=== PATIENT | female | born 1945 | race Caucasian/White ===

== ENCOUNTER 2017-04-22 02:20 | Emergency (ER) | payer MEDICARE ==
[2017-04-22 02:27] VITALS: O2SAT 94
--- NOTE | 2017-04-22 02:54 | ERPHSYRPT ---
- History of Present Illness Time Seen by Provider: 04/22/17 02:38 Source: patient Patient Subjective Stated Complaint: REPORTS THAT SHE HAS HAD SOME RECTAL BLEEDING SINCE 1830 TONIGHT - HAS TROUBLE WITH HEMORRHOIDS AND INCONSISTENT USE OF STOOL SOFTENERS - REPORTS THAT SHE BECAME CONCERNED WHEN SHE FILLED THE TOILET WITH BLOOD Triage Nursing Assessment: AMBULATORY TO TREATMENT AREA - WADDLING GAIT - MOVES ALL EXTREMITIES WITH EQUAL STRENGTH. ALERT/ORIENTED - ANXIOUS AFFECT. SKIN FLUSHED/HOT/DRY - NO RASH/INJURY. RESPS EASY - LABORED PER EXERTION Physician History: The patient is a 71-year-old female with her daughter complaining of bright red blood per rectum when she tries to have a bowel movement. This has occurred 4 times over the last 9 hours. She has a history of constipation and has been prescribed laxatives and stool softeners but has not taken any for 4-5 months. I reviewed the results of the CT scan in 2014 and there was no mention of diverticular disease. She did however have a 5 mm kidney stone at that time. She states that she has significant hemorrhoids. She believes the hemorrhoids are bleeding when she bears down to have a bowel movement. She denies any specific pain. Past medical history is significant for uterine cancer treated with radiation therapy, hypertension, diabetes, and external hemorrhoids. She' s had a cholecystectomy, appendectomy, and CABG. Timing/Duration: today, hour(s) (9) Severity: mild Modifying Factors: Improves With: other Associated Symptoms: other (rectal bleeding.) Allergies/Adverse Reactions: venom-honey bee [bee venom (honey bee)] Allergy (Intermediate, Verified 00:58) Home Medications: Amlodipine Besylate 10 mg [Norvasc 10 MG] 10 mg PO DAILY 04/22/17 [History] Bisoprolol Fumarate 5 mg PO DAILY 04/22/17 [History] Insulin Lispro [Humalog] 1 unit SQ DAILY 04/22/17 [History] Potassium Chloride 20 Meq [Klor-Con 20 MEQ] 20 meq PO DAILY 04/22/17 [History] Zolpidem Tartrate [Ambien] 5 mg PO DAILY 04/22/17 [History] Hx Tetanus, Diphtheria Vaccination/Date Given: Yes Hx Influenza Vaccination/Date Given: Yes Hx Pneumococcal Vaccination/Date Given: Yes Immunizations Up to Date: No - Review of Systems Constitutional: No Fever, No Chills Eyes: No Symptoms Ears, Nose, & Throat: No Symptoms Respiratory: No Cough, No Dyspnea Cardiac: No Chest Pain, No Edema, No Syncope Abdominal/Gastrointestinal: Constipation (with hemorrhoids) Genitourinary Symptoms: No Dysuria Musculoskeletal: No Back Pain, No Neck Pain Skin: No Rash Neurological: No Dizziness, No Focal Weakness, No Sensory Changes Psychological: No Symptoms Endocrine: No Symptoms Hematologic/Lymphatic: No Symptoms Immunological/Allergic: No Symptoms All Other Systems: Reviewed and Negative (probably) - Past Medical History Pertinent Past Medical History: Yes Neurological History: Peripheral Neuropathy ENT History: No Pertinent History Cardiac History: Hypertension, Myocardial Infarction (HI) Respiratory History: No Pertinent History Endocrine Medical History: Diabetes Type II Musculoskeletal History: Arthritis GI Medical History: Other History: No Pertinent History, Other Psycho-Social History: Anxiety Female Reproductive Disorders: Uterine Cancer Other Medical History: Cataract removal with lens implant bilateral. kidney stone - Past Surgical History Past Surgical History: Yes Neuro Surgical History: No Pertinent History Cardiac: CABG, Cardiac Catheterization Respiratory: Chest Surgery Gastrointestinal: Appendectomy, Cholecystectomy, Hernia Repair Genitourinary: No Pertinent History Musculoskeletal: No Pertinent History, Orthopedic Surgery, Other Female Surgical History: No Pertinent History Other Surgical History: erica IOL implant,cataract removal,IMANI back,,states bone bx at [facility], T&A, 2 kyphoplasty,hernia repair - Social History Smoking Status: Never smoker How long have you smoked: 10years Exposure to second hand smoke: No Drug Use: none Patient Lives Alone: No - Female History Hx Last Menstrual Period: N/A Hx Now: No - Nursing Vital Signs Nursing Vital Signs: Initial Vital Signs Pulse Rate 53 Respiratory Rate 18 Blood Pressure [Right Arm] 153/78 Pain Intensity 2 - Physical Exam General Appearance: no apparent distress, alert Eye Exam: PERRL/EOMI, eyes nml inspection Ears, Nose, Throat Exam: normal ENT inspection, TMs normal, pharynx normal, moist mucous membranes Neck Exam: normal inspection, non-tender, supple, full range of motion Respiratory Exam: normal breath sounds, lungs clear, No respiratory distress Cardiovascular Exam: regular rate/rhythm, normal heart sounds, normal peripheral pulses Gastrointestinal/Abdomen Exam: soft, normal bowel sounds, other (obese), No tenderness, No mass Pelvic Exam: not done Rectal Exam: normal rectal tone, hemorrhoids, blood, No tenderness Back Exam: normal inspection, normal range of motion, No CVA tenderness, No vertebral tenderness Extremity Exam: normal inspection, normal range of motion, pelvis stable Neurologic Exam: alert, oriented x 3, cooperative, normal mood/affect, nml cerebellar function, nml station & gait, sensation nml, No motor deficits Skin Exam: normal color, warm, dry, No rash Lymphatic Exam: No adenopathy SpO2 Interpretation: normal SpO2: 94 Oxygen Delivery: Room Air - Radiology Exams Abdomen X-ray Interpretation: Interpreted by me, Other (increased colonic fecal load) Ordered Tests: Active Orders 24 hr Category Date Time Status OBSTR/ACUTE ABDOMEN SERIES Stat Exams 04/22/17 03:06 Taken CBC W DIFF Stat Lab 04/22/17 03:25 Completed CMP Stat Lab 04/22/17 03:25 Received Occult Blood,Stool Other Stat Lab 04/22/17 03:15 Completed Lab/Rad Data: Laboratory Result Diagrams 04/22/17 03:25 Laboratory Results 04/22/17 04/22/17 Range/Units 03:25 03:15 WBC 7.6 (4.0-10.5) K/mm3 RBC 4.26 (4.1-5.4) M/mm3 Hgb 13.5 (12.0-16.0) gm/dl Hct 40.8 (35-47) % MCV 95.8 (78-100) fl MCH 31.7 (26-32) pg MCHC 33.1 (32-36) g/dl RDW 14.1 H (11.5-14.0) % Plt Count 124 L (150-450) K/mm3 MPV 9.5 (6-9.5) fl Gran % 54.9 (36.0-66.0) % Lymphocytes % 27.1 (24.0-44.0) % Monocytes % 13.6 H (0.0-12.0) % Eosinophils % 3.6 (0.00-5.0) % Basophils % 0.8 (0.0-0.4) % Basophils # 0.06 (0-0.4) Stool Occult Blood NEGATIVE (Negative) - Progress Progress: unchanged - Departure Time of Disposition: 03:48 Departure Disposition: Home Clinical Impression: Constipation Condition: Stable Critical Care Time: No Additional Instructions: Your abdominal x-ray shows an increased amount of fecal material throughout her colon consistent with constipation. The external physical exam shows blood around your external hemorrhoids. Your laboratory results shows that you are not anemic. You declined an enema in the ER. You can restart your laxatives when you get home. You can also try magnesium citrate available over-the- counter. Refrain from straining when he had a bowel movement. Follow-up as needed.
[2017-04-22 03:33] LABS: BASOPHIL % 0.8 % (0.0-0.4); Eosinophil % 3.6 % (0.00-5.0); Granulocytes % 54.9 % (36.0-66.0); Lymphocytes % 27.1 % (24.0-44.0); Mean Cell Volume 95.8 fl (78-100); Mean Corpuscular Hemoglobin 31.7 pg (26-32); Mean Platelet Volume 9.5 fl (6-9.5); Monocytes % 13.6 % (0.0-12.0); Platelet Count 124 K/mm3 (150-450); Red Blood Count 4.26 M/mm3 (4.1-5.4); Red Cell Distribution Width 14.1 % (11.5-14.0); White Blood Count 7.6 K/mm3 (4.0-10.5)
[2017-04-22 03:51] LABS: ALBUMIN 3.3 g/dL (3.4-5.0); ANION GAP 15.9 MEQ/L (5-15); BILIRUBIN,TOTAL 0.4 mg/dL (0.2-1.0); Carbon Dioxide 24.2 mEq/L (21-32); Potassium 4.1 mEq/L (3.5-5.1)
[2017-04-22 04:04] VITALS: BP 135/72; PULSE 72
--- NOTE | 2017-04-22 08:43 | XRAY ---
Exam: Acute obstructive series from 04/22/2017. Comparison: CT of the abdomen and pelvis without IV contrast from 11/18/2015, supine abdomen film from 07/15/2015, and two-view chest from 07/09/2015. Indication: Constipation for 3 days, diarrhea, history of prior cholecystectomy and appendectomy, patient states she has a "large hernia", but never had surgery for it. Findings: 2 supine images and one upright image of the abdomen were obtained. In addition, a PA chest film was obtained. The transverse heart size is normal. There is evidence of prior sternotomy, most likely due to CABG. The remainder of the gary and mediastinal structures appears unremarkable. The lungs are adequately inflated. A tiny stable calcified granuloma is seen at the lateral right lung base. No air space infiltrates, pulmonary vascular congestion, pneumothorax, or pleural fluid is seen. There may be a minimal hiatal hernia. The bowel gas pattern reveals mild to moderate scattered colonic stool. No bowel distention or free intraperitoneal air is seen. No hepatosplenomegaly is seen. A cluster of 4-5 calcifications is seen projected over the mid to lower pole of the right kidney consistent with nephrolithiasis. This is seen on the prior CT study from 11/18/2015 as well. Multilevel kyphoplasty is seen throughout the lumbar spine from L1-L5. This represents no change. There is slight convexity of the lower thoracic spine toward the left centered at T11-T12. Surgical clips are seen within both femoral regions, perhaps due to prior aorta-bifemoral bypass surgery. A couple tiny surgical clips overlie the region of the symphysis pubis. There is also some minimal high attenuation density projected about the symphysis pubis which may relate to some residual curvilinear contrast or calcification within the presacral space on the CT study of 11/18/2015. Impression: 1. No acute cardiopulmonary disease is seen. I again note evidence of prior CABG. There may be some minimal vertically oriented scarring or atelectasis at the right cardiophrenic angle. 2. Nonspecific bowel gas pattern with a mild to moderate amount of colonic stool retention. No bowel obstruction or free air is seen. Incidentally, subtle fat-containing anterior abdominal wall hernias seen on the CT study 11/18/2015 are unable to be detected by plain film 3. Right-sided nephrolithiasis overlying lower pole of right kidney. This is similar to the prior CT study from 11/18/2015. 4. Prior kyphoplasty throughout the entire lumbar spine (L1-L5). 5. Findings consistent with aorto-bifemoral bypass surgery, no change.
== END 2017-04-22 04:04 | disposition home or self-care (01) ==
LOC: ED 02:20
DX: K59.00 Constipation, unspecified (principal); K62.5 Hemorrhage of anus and rectum; I10 Essential (primary) hypertension; E11.9 Type 2 diabetes mellitus without complications; K64.4 Residual hemorrhoidal skin tags
CPT/HCPCS: 36415; 74022; 80053; 82272; 85025; 99284

== ENCOUNTER 2017-12-18 19:56 | Emergency (ER) | payer MEDICARE | END 2017-12-18 20:12 | disposition left against medical advice (07) | LOC: ED 19:56 | DX: Z53.21 Procedure and treatment not carried out due to patient leaving prior to being seen by health care provider (principal) ==

== ENCOUNTER 2018-02-18 12:04 | Inpatient (IN) | payer MEDICARE ==
[2018-02-18] MEDS ORDERED: Zofran 4 MG/2 ML VIAL IV ONE ×2 (12:27→16:56)
[2018-02-18] MEDS ORDERED: MORPHINE SULFATE 2 MG INJ IV ONE ×3 (12:27→15:44)
--- NOTE | 2018-02-18 12:35 | ERPHSYRPT ---
- History of Present Illness Time Seen by Provider: 02/18/18 12:25 Historian: patient Exam Limitations: no limitations Patient Subjective Stated Complaint: abd pain and constipation Triage Nursing Assessment: to er c/o abd pain and constipation pt states she has chronic problems with constipation. pt arrives has large hernia noted to right side abd states pain is concentrated in this area. pt nauseous no vomiting noted. pt p/w/d resp easy a@ox3. BS + reg to left upper abd hypo to ru and rlq Physician History: Pt started c/o diffuse abdominal pain 3 days ago, she did not have a bowel movement x 4 days, denies passing gases, denies fever, vomiting, or urinary complaints, but nauseated, dry heaving. Timing/Duration: day(s) (3) Quality: sharpness Abdominal Pain Onset Location: generalized abdomen Pain Radiation: no radiation Severity of Pain-Max: severe Severity of Pain-Current: severe Modifying Factors: Improves With: nothing Associated Symptoms: denies symptoms Previous symptoms: no prior history Allergies/Adverse Reactions: venom-honey bee [bee venom (honey bee)] Allergy (Intermediate, Verified 12:25) Home Medications: Amlodipine Besylate 10 mg [Norvasc 10 MG] 10 mg PO DAILY 04/22/17 [History] Insulin Lispro [Humalog] 1 unit SQ UD 04/22/17 [History] Potassium Chloride 20 Meq [Klor-Con 20 MEQ] 20 meq PO DAILY 04/22/17 [History] Zolpidem Tartrate [Ambien] 5 mg PO HSPRN PRN 04/22/17 [History] ALPRAZolam [Xanax 0.5 mg] 0.5 mg PO DAILY 12/16/17 [History] Alendronate Sodium 70 mg [Fosamax 70 MG] 70 mg PO WEEKLY 12/16/17 [History ] Ergocalciferol (Vitamin D2) [Vitamin D] 50,000 units PO WEEKLY 12/16/17 [History ] Olmesartan Medoxomil [Benicar] 40 mg PO DAILY 12/16/17 [History] Tizanidine HCl 4 mg [Zanaflex 4 MG] 4 mg PO Q8H 12/16/17 [History] Hx Tetanus, Diphtheria Vaccination/Date Given: No Hx Influenza Vaccination/Date Given: Yes Hx Pneumococcal Vaccination/Date Given: No Immunizations Up to Date: Yes - Review of Systems Constitutional: No Symptoms Abdominal/Gastrointestinal: Abdominal Pain, Nausea All Other Systems: Reviewed and Negative - Past Medical History Pertinent Past Medical History: Yes Neurological History: Peripheral Neuropathy ENT History: No Pertinent History Cardiac History: Other Respiratory History: No Pertinent History Endocrine Medical History: Diabetes Type II Musculoskeletal History: Other GI Medical History: Other History: No Pertinent History, Other Psycho-Social History: Anxiety Female Reproductive Disorders: Uterine Cancer Other Medical History: Cataract removal with lens implant bilateral. kidney stone - Past Surgical History Past Surgical History: Yes Neuro Surgical History: No Pertinent History Cardiac: CABG, Cardiac Catheterization Respiratory: Chest Surgery Gastrointestinal: Appendectomy, Cholecystectomy, Hernia Repair Genitourinary: No Pertinent History Musculoskeletal: No Pertinent History, Orthopedic Surgery, Other Female Surgical History: No Pertinent History Other Surgical History: erica IOL implant,cataract removal,IMANI back,,states bone bx at [facility], T&A, 2 kyphoplasty,hernia repair - Social History Smoking Status: Never smoker How long have you smoked: 10years Exposure to second hand smoke: No Drug Use: none Patient Lives Alone: No - Nursing Vital Signs Nursing Vital Signs: Initial Vital Signs Temperature 98.2 F 02/18/18 12:14 Pulse Rate 87 02/18/18 12:14 Respiratory Rate 16 02/18/18 12:14 Blood Pressure 136/80 02/18/18 12:14 O2 Sat by Pulse Oximetry 94 L 02/18/18 12:14 Pain Scale Pain Intensity 10 - Physical Exam General Appearance: no apparent distress Eye Exam: eyes nml inspection Ears, Nose, Throat Exam: normal ENT inspection Neck Exam: normal inspection, non-tender, supple Respiratory Exam: normal breath sounds, lungs clear, airway intact, No chest tenderness, No respiratory distress Cardiovascular Exam: regular rate/rhythm, normal heart sounds, normal peripheral pulses, No murmur Gastrointestinal/Abdomen Exam: soft, tenderness (generalized), distention, No guarding, No ecchymosis, No pulsatile mass Back Exam: normal inspection, No CVA tenderness Extremity Exam: normal inspection Neurologic Exam: alert, oriented x 3 Skin Exam: normal color, warm, dry, No rash Lymphatic Exam: No adenopathy SpO2 Interpretation: normal SpO2: 94 Oxygen Delivery: Room Air - Course Nursing assessment & vital signs reviewed: Yes - Radiology Exams Chest X-ray Interpretation: Interpreted by me, Negative - CT Exams Abdomen/Pelvis CT Interpretation: Tele-radiologist Report, Other (Small bowel and proximal colonic obstruction secondary to right Spigelian hernia containing short segment of ascending colon.) Ordered Tests: Active Orders 24 hr Category Date Time Status EKG-ER Only STAT Care 02/18/18 12:27 Active IV Insertion STAT Care 02/18/18 12:27 Active NG to Suction (Insertion) ROUTINE Care 02/18/18 15:02 Active NPO (ED) STAT Care 02/18/18 12:27 Active ABDOMEN AND PELVIS W/0 CONTRAS [CT] Stat Exams 02/18/18 12:28 Taken CHEST 1 VIEW (PORTABLE) Stat Exams 02/18/18 12:28 Taken CBC W DIFF Stat Lab 02/18/18 12:40 Completed CMP Stat Lab 02/18/18 12:40 Completed CULTURE,URINE Stat Lab 02/18/18 14:15 Received LIPASE Stat Lab 02/18/18 12:40 Completed PROTIME WITH INR Stat Lab 02/18/18 12:40 Completed UA W/ MICROSCOPIC Stat Lab 02/18/18 14:15 Completed Medication Summary Generic Name Dose Route Start Last Admin Trade Name Freq PRN Reason Stop Dose Admin Sodium Chloride 1,000 mls @ 100 mls/hr 02/18/18 12:30 02/18/18 12:44 Sodium Chloride 0.9% 1000 Ml IV 03/20/18 12:29 100 mls/hr .Q10H HANNA Administration Discontinued Medications Generic Name Dose Route Start Last Admin Trade Name Freq PRN Reason Stop Dose Admin Morphine Sulfate 2 mg 02/18/18 12:27 02/18/18 12:45 Morphine Sulfate 2 Mg Inj IV 02/18/18 12:28 2 mg STAT ONE Administration Morphine Sulfate Confirm 02/18/18 12:42 Morphine Sulfate 2 Mg Inj Administered 02/18/18 12:43 Dose 2 mg .ROUTE .STK-MED ONE Morphine Sulfate 2 mg 02/18/18 13:57 02/18/18 14:14 Morphine Sulfate 2 Mg Inj IV 02/18/18 13:58 2 mg 1XONLY ONE Administration Morphine Sulfate Confirm 02/18/18 14:11 Morphine Sulfate 2 Mg Inj Administered 02/18/18 14:12 Dose 2 mg .ROUTE .STK-MED ONE Ondansetron HCl 4 mg 02/18/18 12:27 02/18/18 12:45 Zofran 4 Mg/2 Ml Vial IV 02/18/18 12:28 4 mg STAT ONE Administration Ondansetron HCl Confirm 02/18/18 12:42 Zofran 4 Mg/2 Ml Vial Administered 02/18/18 12:43 Dose 4 mg .ROUTE .K-[facility] ONE Lab/Rad Data: Laboratory Result Diagrams 02/18/18 12:40 02/18/18 12:40 Laboratory Results 02/18/18 02/18/18 02/18/18 Range/Units 14:15 12:40 12:40 WBC (4.0-10.5) K/mm3 RBC (4.1-5.4) M/mm3 Hgb (12.0-16.0) gm/dl Hct (35-47) % MCV (78-100) fl MCH (26-32) pg MCHC (32-36) g/dl RDW (11.5-14.0) % Plt Count (150-450) K/mm3 MPV (6-9.5) fl Gran % (36.0-66.0) % Eos # (Auto) (0-0.5) Absolute Lymphs (auto) (1.0-4.6) Absolute Monos (auto) (0.0-1.3) Lymphocytes % (24.0-44.0) % Monocytes % (0.0-12.0) % Eosinophils % (0.00-5.0) % Basophils % (0.0-0.4) % Absolute Granulocytes (1.4-6.9) Basophils # (0-0.4) PT 11.6 (9.95-12.35) SECONDS INR 1.04 (0.8-3.0) Sodium 143 (137-145) mmol/L Potassium 3.9 (3.5-5.1) mmol/L Chloride 107 (98-107) mmol/L Carbon Dioxide 20 L (22-30) mmol/L Anion Gap 19.5 H (5-15) MEQ/L BUN 28 H (7-17) mg/dL Creatinine 1.40 H (0.52-1.04) mg/dL Estimated GFR 39.4 ML/MIN Glucose 151 H (74-106) mg/dL Calcium 9.7 (8.4-10.2) mg/dL Total Bilirubin 0.90 (0.2-1.3) mg/dL AST 22 (14-36) U/L ALT 15 (0-35) U/L Alkaline Phosphatase 106 (38-126) U/L Serum Total Protein 8.2 (6.3-8.2) g/dL Albumin 4.6 (3.5-5.0) g/dL Lipase 57 (23-300) U/L Ur Collection Type CCMS Urine Color YELLOW (YELLOW) Urine Appearance CLEAR (CLEAR) Urine pH 5.0 (5-6) Ur Specific Pride 1.020 (1.005-1.025) Urine Protein TRACE (Negative) Urine Ketones SMALL (NEGATIVE) Urine Blood NEGATIVE (0-5) Bogdan/ul Urine Nitrite NEGATIVE (NEGATIVE) Urine Bilirubin NEGATIVE (NEGATIVE) Urine Urobilinogen NORMAL (0-1) mg/dL Ur Leukocyte Esterase TRACE (NEGATIVE) Urine Microscopic WBC 0-2 (0-5) /HPF Ur Epithelial Cells MODERATE (FEW) /HPF Urine Bacteria FEW (NEGATIVE) /HPF Hyaline Casts 25-50 (0-2) /LPF Urine Mucus SLIGHT (NEGATIVE) /HPF Urine Culture Reflexed YES (NO) Urine Glucose NEGATIVE (NEGATIVE) mg/dL Specimen Received 1415 02/18/18 02/18/18 Range/Units 12:40 WBC 12.0 H (4.0-10.5) K/mm3 RBC 4.50 (4.1-5.4) M/mm3 Hgb 14.6 (12.0-16.0) gm/dl Hct 44.1 (35-47) % MCV 98.0 (78-100) fl MCH 32.4 H (26-32) pg MCHC 33.1 (32-36) g/dl RDW 13.7 (11.5-14.0) % Plt Count 150 (150-450) K/mm3 MPV 9.7 H (6-9.5) fl Gran % 81.0 H (36.0-66.0) % Eos # (Auto) 0.02 (0-0.5) Absolute Lymphs (auto) 1.24 (1.0-4.6) Absolute Monos (auto) 0.98 (0.0-1.3) Lymphocytes % 10.3 L (24.0-44.0) % Monocytes % 8.2 (0.0-12.0) % Eosinophils % 0.2 (0.00-5.0) % Basophils % 0.3 (0.0-0.4) % Absolute Granulocytes 9.73 H (1.4-6.9) Basophils # 0.03 (0-0.4) PT (9.95-12.35) SECONDS INR (0.8-3.0) Sodium (137-145) mmol/L Potassium (3.5-5.1) mmol/L Chloride (98-107) mmol/L Carbon Dioxide (22-30) mmol/L Anion Gap (5-15) MEQ/L BUN (7-17) mg/dL Creatinine (0.52-1.04) mg/dL Estimated GFR ML/MIN Glucose (74-106) mg/dL Calcium (8.4-10.2) mg/dL Total Bilirubin (0.2-1.3) mg/dL AST (14-36) U/L ALT (0-35) U/L Alkaline Phosphatase (38-126) U/L Serum Total Protein (6.3-8.2) g/dL Albumin (3.5-5.0) g/dL Lipase (23-300) U/L Ur Collection Type Urine Color (YELLOW) Urine Appearance (CLEAR) Urine pH (5-6) Ur Specific Pride (1.005-1.025) Urine Protein (Negative) Urine Ketones (NEGATIVE) Urine Blood (0-5) Bogdan/ul Urine Nitrite (NEGATIVE) Urine Bilirubin (NEGATIVE) Urine Urobilinogen (0-1) mg/dL Ur Leukocyte Esterase (NEGATIVE) Urine Microscopic WBC (0-5) /HPF Ur Epithelial Cells (FEW) /HPF Urine Bacteria (NEGATIVE) /HPF Hyaline Casts (0-2) /LPF Urine Mucus (NEGATIVE) /HPF Urine Culture Reflexed (NO) Urine Glucose (NEGATIVE) mg/dL Specimen Received - Progress Progress: improved Progress Note: 02/18/18 15:31 Pt was informed about the results and the need to be admitted, NG tube explained , and the nature of her surgery, Dr Loving was called, discussed her findings and current condition, he agreed to see patient, after being admitted to her PCP here. I talked to Dr Easton, who visited our ER, she agreed to admit patient to Medical Surgical bed. Patient was informed , and agreed. Discussed with .: Jemma Loving Will see patient in: hospital (full admit) - Departure Time of Disposition: 15:33 Departure Disposition: In-patient Admission Clinical Impression: Incarcerated ventral hernia Bowel obstruction Qualifiers: Intestinal obstruction type: other intestinal obstruction Intestinal obstruction extent: complete Qualified Code(s): K56.691 - Other complete intestinal obstruction Condition: Fair Critical Care Time: No Referrals: SHAYE FRANCISCO MD [Primary Care Provider] -
[2018-02-18] MEDS ORDERED: MORPHINE SULFATE 2 MG INJ ONE ×2 (12:42→14:11)
[2018-02-18] MEDS ORDERED: Zofran 4 MG/2 ML VIAL ONE (12:42)
[2018-02-18] MEDS: Sodium Chloride 0.9% 1000 ML 1,000 ML IV SCH ×3 (12:44→23:42)
[2018-02-18 12:48] LABS: BASOPHIL % 0.3 % (0.0-0.4); Basophil (Absolute #) 0.03 (0-0.4); Eosinophil % 0.2 % (0.00-5.0); Eosinophil (Absolute #) 0.02 (0-0.5); Granulocyte Absolute (ANC) 9.73 (1.4-6.9); Hematocrit 44.1 % (35-47); Hemoglobin 14.6 gm/dl (12.0-16.0); Lymphocyte (Absolute #) 1.24 (1.0-4.6); Lymphocytes % 10.3 % (24.0-44.0); Mean Corpuscular Hemoglobin 32.4 pg (26-32); Mean Corpuscular Hgb Concent. 33.1 g/dl (32-36); Mean Platelet Volume 9.7 fl (6-9.5); Monocyte (Absolute #) 0.98 (0.0-1.3); Monocytes % 8.2 % (0.0-12.0); Platelet Count 150 K/mm3 (150-450); Red Cell Distribution Width 13.7 % (11.5-14.0)
[2018-02-18 13:05] LABS: ALBUMIN 4.6 g/dL (3.5-5.0); ANION GAP 19.5 MEQ/L (5-15); BILIRUBIN,TOTAL 0.9 mg/dL (0.2-1.3); Calcium 9.7 mg/dL (8.4-10.2); Creatinine 1 1.4 mg/dL (0.52-1.04); Potassium 3.9 mmol/L (3.5-5.1); Total Protein 8.2 g/dL (6.3-8.2)
[2018-02-18 13:17] LABS: INR 1.04 (0.8-3.0)
[2018-02-18 14:21] LABS: Appearance CLEAR (CLEAR); Bilirubin NEGATIVE (NEGATIVE); Blood NEGATIVE Ery/ul (0-5); Glucose NEGATIVE (NEGATIVE); Ketones SMALL (NEGATIVE); Leukocyte Esterase TRACE (NEGATIVE); Nitrite NEGATIVE (NEGATIVE); Protein,Urine Dip TRACE (Negative); Urobilinogen NORMAL mg/dL (0-1)
[2018-02-18 14:36] LABS: Bacteria FEW /HPF (NEGATIVE); Epithelial Cells MODERATE /HPF (FEW); Hyaline Casts 25-50 /LPF (0-2); Mucus SLIGHT /HPF (NEGATIVE); WBC 0-2 /HPF (0-5)
[2018-02-18] MEDS ORDERED: Zofran 4 MG/2 ML VIAL IV PRN (15:34)
[2018-02-18] MEDS ORDERED: MORPHINE SULFATE 2 MG INJ IV PRN (15:41)
[2018-02-18] MEDS ORDERED: Lactated Ringers 1,000 ML IV ONE ×2 (15:52→16:24)
[2018-02-18] MEDS ORDERED: Sensorcaine 0.25% 10 ML ONE (16:23)
[2018-02-18] MEDS ORDERED: Quelicin Fliptop 200 MG/10 ML IV ONE (16:56)
[2018-02-18] MEDS ORDERED: PHENYLEPHRINE HCL IV ONE (16:56)
[2018-02-18] MEDS ORDERED: Zemuron 100 MG/10 ML IV ONE (16:56)
[2018-02-18] MEDS ORDERED: Ephedrine Sulfate 50 MG/ML IV ONE (16:56)
[2018-02-18] MEDS ORDERED: DIPRIVAN 200 MG/20 ML IV ONE (16:56)
[2018-02-18] MEDS ORDERED: BRIDION 200MG/2ML IV ONE (16:56)
[2018-02-18] MEDS ORDERED: Morphine PCA 1 MG/ML 30 ML IV ONE (20:09)
[2018-02-18] MEDS ORDERED: MORPHINE SULFATE 10 MG/ML ONE (20:19)
[2018-02-18] MEDS ORDERED: NovoLOG Insulin SQ PRN (20:59)
[2018-02-18] MEDS ORDERED: Ambien 5 MG Tablet PO PRN (21:01)
[2018-02-18] MEDS ORDERED: NORCO 5/325 MG ONE (21:19)
[2018-02-18] MEDS ORDERED: Morphine PCA 1 MG/ML 30 ML IV PRN (21:20)
[2018-02-18] MEDS: NORCO 5/325 MG PO PRN (21:27)
[2018-02-18] MEDS: Zanaflex 4 MG PO SCH (21:34)
--- NOTE | 2018-02-18 22:18 | XRAY ---
Indication: Abdomen pain and constipation. Multiple contiguous axial images obtained through the abdomen and pelvis without contrast as ordered. Comparison: November 18, 2015. Lung bases again hyperinflated and clear with stable right base calcified granuloma. Heart is not enlarged. Interval enlarging moderate-sized hiatal hernia. Stomach is distended with fluid. There is now right paraumbilical ventral hernia with herniated knuckle of ascending colon. The more proximal colon and small bowel loops are abnormally fluid distended favoring partial obstruction. No free fluid/air. Stable fatty midline epigastric ventral hernia and fatty umbilical hernia. Stable nonobstructing right renal calculi, atrophic left kidney with cysts, left hydroureter without distal calculus, cholecystectomy, appendectomy, and presacral calcifications. Remaining liver, pancreas, spleen, and adrenal glands appear unremarkable for noncontrast exam. There remains heavy scattered vascular calcifications with aortobifemoral bypass surgery. Osseous structures again demonstrates osteopenia and multilevel lumbar kyphoplasty. Impression: 1. New right paraumbilical ventral hernia with herniated ascending colon and subsequent proximal obstruction. Stable fatty epigastric ventral and fatty umbilical hernias. 2. Enlarging hiatal hernia. 3. Stable nonobstructing right renal calculi, left renal atrophy with cysts, left hydroureter, presacral calcifications, and postoperative changes related to aortofemoral bypass and multilevel kyphoplasty. Comment: Preliminary interpretation was made by C. No discrepancy. CTDI 22.64
--- NOTE | 2018-02-18 22:18 | XRAY ---
Indication: Abdominal pain. Comparison: April 22, 2017. Portable apical lordotic chest underinflated today and clear. Heart is not enlarged and again demonstrate CABG surgery. Bony thorax intact again with osteopenia and degenerative changes. Impression: Nonacute underinflated chest.
[2018-02-19] MEDS: D5W/0.45NS W/ 20mEq KCl 1000 ML 1,000 ML IV SCH ×2 (00:21→19:43)
[2018-02-19] MEDS: MEFOXIN 1 Gm/ D5W 50 Ml** 1 G/50 ML ML IV SCH ×4 (00:21→18:47)
[2018-02-19] MEDS: Sodium Chloride 0.9% 1000 ML 1,000 ML IV SCH (00:24)
[2018-02-19] MEDS: Zanaflex 4 MG PO SCH ×3 (04:07→21:54)
[2018-02-19] MEDS: NORCO 5/325 MG PO PRN (05:59)
[2018-02-19 06:11] LABS: BASOPHIL % 0.1 % (0.0-0.4); Basophil (Absolute #) 0.01 (0-0.4); Eosinophil % 0.1 % (0.00-5.0); Eosinophil (Absolute #) 0.01 (0-0.5); Granulocyte Absolute (ANC) 7.55 (1.4-6.9); Granulocytes % 76.1 % (36.0-66.0); Hematocrit 32.1 % (35-47); Hemoglobin 10.1 gm/dl (12.0-16.0); Lymphocyte (Absolute #) 0.94 (1.0-4.6); Lymphocytes % 9.5 % (24.0-44.0); Mean Cell Volume 102.2 fl (78-100); Mean Corpuscular Hemoglobin 32.1 pg (26-32); Mean Corpuscular Hgb Concent. 31.5 g/dl (32-36); Mean Platelet Volume 9.4 fl (6-9.5); Monocyte (Absolute #) 1.41 (0.0-1.3); Monocytes % 14.2 % (0.0-12.0); Platelet Count 110 K/mm3 (150-450); Red Blood Count 3.14 M/mm3 (4.1-5.4); Red Cell Distribution Width 14.2 % (11.5-14.0); White Blood Count 9.9 K/mm3 (4.0-10.5)
[2018-02-19 07:24] LABS: Calcium 7.3 mg/dL (8.4-10.2); Creatinine 1 1.74 mg/dL (0.52-1.04)
[2018-02-19] MEDS ORDERED: Sodium Chloride 0.9% W/ 20 mEq KCl/LITER 1,000 ML IV SCH (08:00)
[2018-02-19] MEDS ORDERED: Morphine PCA 1 MG/ML 30 ML IV PRN ×2 (08:19→09:42)
[2018-02-19] MEDS ORDERED: NORVASC 5 MG PO SCH (10:00)
[2018-02-19] MEDS ORDERED: OLMESARTAN MEDOXOMIL 40 MG PO SCH (10:00)
[2018-02-19] MEDS ORDERED: NON-FORMULARY ITEM (Potassium Chloride 20 Meq [Klor-Con 20 Meq] 20 MEQ) PO SCH (10:00)
[2018-02-19] MEDS ORDERED: NON-FORMULARY ITEM (Amlodipine Besylate 10 Mg [Norvasc 10 Mg] 10 MG) PO SCH (10:00)
[2018-02-19] MEDS ORDERED: Benicar 20 MG PO SCH (10:00)
[2018-02-19] MEDS ORDERED: Sodium Chloride 0.9% 500 ML 500 ML IV ONE (10:04)
[2018-02-19 10:53] LABS: ANION GAP 13.9 MEQ/L (5-15); Calcium 6.9 mg/dL (8.4-10.2); Creatinine 1 1.83 mg/dL (0.52-1.04)
[2018-02-19] MEDS: Klor Con 10 MEQ PO SCH (11:37)
[2018-02-19] MEDS: xanAX 0.5 MG PO SCH (11:38)
[2018-02-19] MEDS: Dextrose 5% -0.45 NaCl 1000 ML 1,000 ML IV SCH ×3 (11:41→22:02)
[2018-02-19] MEDS: ENOXAPARIN SODIUM SQ SCH (12:02)
--- NOTE | 2018-02-19 12:09 | PCM.HP ---
History of Present Illness - Chief Complaint Chief Complaint: Incarcerated hernia History of Present Illness: is a 72 year old female who c/o not feeling well at home x 4-5d. Has been taking care of her 88 yo mother who just got out of the hospital 2d ago. She didn't have stools for several days but felt like she needed to. Had flatus. Had nausea, no vomiting. Went to ER yesterday with 10/10 RLQ pain and was found on CT to have an incarcerated hernia. Dr. Loving took her to surgery last night, thank you. This morning her vitals are stable aside from hypotension into the 70s at times. 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 She did receive a 500cc IV bolus of NS. She would like a diet ricci coke. pt still has NG tube. Having 8/10 RLQ pain. No other complaints at this time. Conversant and laughing, telling jokes. - Review of Systems Abdominal/Gastrointestinal: Abdominal Pain, Nausea, Constipation Skin: Rash (dry skin anterior RLE) Psychological: No Anxiety, No Depression, No Suicidal Ideations All Other Systems: Reviewed and Negative Medications & Allergies Home Medications: Home Medication List Amlodipine Besylate 10 mg [Norvasc 10 MG] 10 mg PO DAILY 04/22/17 [History Confirmed 02/18/18] Insulin Lispro [Humalog] 1 unit SQ UD 04/22/17 [History Confirmed 02/18/18] Potassium Chloride 20 Meq [Klor-Con 20 MEQ] 20 meq PO DAILY 04/22/17 [History Confirmed 02/18/18] Zolpidem Tartrate [Ambien] 5 mg PO HSPRN PRN 04/22/17 [History Confirmed ] ALPRAZolam [Xanax 0.5 mg] 0.5 mg PO DAILY 12/16/17 [History Confirmed 02/18/18] Alendronate Sodium 70 mg [Fosamax 70 MG] 70 mg PO WEEKLY 12/16/17 [ History Confirmed 02/18/18] Ergocalciferol (Vitamin D2) [Vitamin D] 50,000 units PO WEEKLY 12/16/17 [ History Confirmed 02/18/18] Olmesartan Medoxomil [Benicar] 40 mg PO DAILY 12/16/17 [History Confirmed ] Tizanidine HCl 4 mg [Zanaflex 4 MG] 4 mg PO Q8H 12/16/17 [History Confirmed 02/18/18] Allergies/Adverse Reactions: Allergies Allergy/AdvReac Type Severity Reaction Status Date / Time venom-honey bee Allergy Intermediate Verified 02/18/18 12:25 [bee venom (honey bee)] - Past Medical History Past Medical History: Yes Neurological History: Peripheral Neuropathy ENT History: No Pertinent History Cardiac History: Other Respiratory History: No Pertinent History Endocrine Medical History: Diabetes Type II Musculoskelatal History: Other GI Medical History: Other History: No Pertinent History, Other Pyscho-Social History: Anxiety Reproductive Disorders: Uterine Cancer Comment: Cataract removal with lens implant bilateral. kidney stone - Female History Are you now?: No - Past Surgical History Past Surgical History: Yes Neuro Surgical History: No Pertinent History Cardiac History: CABG, Cardiac Catheterization Respiratory Surgery: Chest Surgery GI Surgical History: Appendectomy, Cholecystectomy, Hernia Repair Genitourinary Surgical Hx: No Pertinent History Musculskeletal Surgical Hx: No Pertinent History, Orthopedic Surgery, Other Female Surgical History: No Pertinent History Other Surgical History: erica IOL implant,cataract removal,IMANI back,,states bone bx at [facility], T&A, 2 kyphoplasty,hernia repair - Social History Smoking Status: Never smoker How long have you smoked: 10years Exposure to second hand smoke: No Alcohol: None Drug Use: none - Physical Exam Vital Signs: Vital Signs - 24 hr Temp Pulse Resp BP Pulse Ox 02/19/18 08:35 80 88/40 02/19/18 08:00 98.5 F 77 12 82/49 100 02/19/18 07:28 77 16 99 02/19/18 06:00 97 02/19/18 05:00 78 20 106/63 97 02/19/18 04:00 98.5 F 74 14 84/41 98 02/19/18 03:00 78 10 L 87/52 96 02/19/18 01:28 99 02/19/18 01:00 75 9 L 90/45 96 02/19/18 00:30 77 14 107/55 97 02/19/18 00:00 98 F 79 10 L 104/56 97 02/18/18 23:30 83 12 109/72 96 02/18/18 22:45 85 16 128/57 99 02/18/18 22:37 99 02/18/18 22:15 86 14 99/51 94 L 02/18/18 21:45 89 16 101/70 97 02/18/18 21:30 88 16 110/59 95 02/18/18 21:28 97 02/18/18 21:15 86 18 139/73 99 02/18/18 21:01 97.9 F 86 20 135/96 98 02/18/18 21:00 88 16 129/98 97 02/18/18 20:45 97.9 F 86 20 135/96 98 02/18/18 16:13 98.0 F 88 18 166/73 94 L 02/18/18 15:34 94 L 02/18/18 14:50 88 94 H 166/73 94 L 02/18/18 14:12 76 20 158/83 95 02/18/18 12:55 74 16 155/80 94 L 02/18/18 12:14 98.2 F 87 16 136/80 94 L Oxygen-Last 24 hours O2 Percentage 2 Liters = 28% O2 Percentage 2 Liters = 28% O2 Percentage 2 Liters = 28% O2 Percentage 2 Liters = 28% O2 Percentage 2 Liters = 28% O2 Percentage 2 Liters = 28% O2 Percentage 2 Liters = 28% O2 Percentage 2 Liters = 28% O2 Percentage 2 Liters = 28% O2 Percentage 2 Liters = 28% O2 Percentage 2 Liters = 28% O2 Percentage 2 Liters = 28% O2 Percentage 2 Liters = 28% O2 Percentage 2 Liters = 28% O2 Percentage 2 Liters = 28% O2 Percentage 2 Liters = 28% General Appearance: no apparent distress, alert Neurologic Exam: oriented x 3, cooperative Eye Exam: eyes nml inspection Ears, Nose, Throat Exam: moist mucous membranes Neck Exam: normal inspection, non-tender, No lymphadenopathy Respiratory Exam: lungs clear, diminished breath sounds, wheezing (faint exp wheeze LLL), No crackles/rales, No rhonchi Cardiovascular Exam: regular rate/rhythm, normal heart sounds, No murmur Gastrointestinal/Abdomen Exam: soft, distention (mild-mod), other (hypoactive bowel sounds, but + in RLQ. dressing clean, dry. NEO drain in place with serosanguinous drainage.), No tenderness, No mass Extremity Exam: No pedal edema, No swelling Skin Exam: warm, dry, other (dry skin anterior RLE, no erythema or exudate) Results - Labs Lab/Micro Results: Accuchecks Date 02/19/18 Date 02/19/18 Time 06:54 Time 00:00 Accucheck Value: 130 Accucheck Value: 186 Accucheck Value: 174 Lab Results-Last 24 Hours 02/19/18 02/19/18 02/19/18 Range/Units 05:45 05:45 10:23 WBC 9.9 (4.0-10.5) K/mm3 RBC 3.14 L (4.1-5.4) M/mm3 Hgb 10.1 L (12.0-16.0) gm/dl Hct 32.1 L (35-47) % MCV 102.2 H (78-100) fl MCH 32.1 H (26-32) pg MCHC 31.5 L (32-36) g/dl RDW 14.2 H (11.5-14.0) % Plt Count 110 L (150-450) K/mm3 MPV 9.4 (6-9.5) fl Gran % 76.1 H (36.0-66.0) % Eos # (Auto) 0.01 (0-0.5) Absolute Lymphs (auto) 0.94 L (1.0-4.6) Absolute Monos (auto) 1.41 H (0.0-1.3) Lymphocytes % 9.5 L (24.0-44.0) % Monocytes % 14.2 H (0.0-12.0) % Eosinophils % 0.1 (0.00-5.0) % Basophils % 0.1 (0.0-0.4) % Absolute Granulocytes 7.55 H (1.4-6.9) Basophils # 0.01 (0-0.4) Sodium 141 141 (137-145) mmol/L Potassium 5.0 5.0 (3.5-5.1) mmol/L Chloride 113 H 112 H (98-107) mmol/L Carbon Dioxide 16 L 19 L (22-30) mmol/L Anion Gap 17 H 13.9 (5-15) MEQ/L BUN 35 H 37 H (7-17) mg/dL Creatinine 1.74 H 1.83 H (0.52-1.04) mg/dL Estimated GFR 30.7 28.9 ML/MIN Glucose 197 H 185 H (74-106) mg/dL Calcium 7.3 L 6.9 L (8.4-10.2) mg/dL Accuchecks Date 02/19/18 Date 02/19/18 Time 06:54 Time 00:00 Accucheck Value: 130 Accucheck Value: 186 Accucheck Value: 174 - Other Procedures and Tests Respiratory Therapy 02/18/18 21:34 Oxygen NASAL CANNULA 2 lpm 02/19/18 06:10 Incentive Spirometry Assessmen UD Assessment/Plan (1) Hypotension Current Visit: Yes Status: Acute Qualifiers: Hypotension type: postprocedural hypotension Qualified Code(s): I95.81 - Postprocedural hypotension Assessment & Plan: Antihypertensives have been held. she has had a bolus. Some improvement with changing narcotic from dilaudid to fentanyl. Will continue to observe, if necessary will start on pressor. Code(s): I95.9 - HYPOTENSION, UNSPECIFIED (2) Bowel obstruction Current Visit: Yes Status: Acute Qualifiers: Intestinal obstruction type: other intestinal obstruction Intestinal obstruction extent: complete Qualified Code(s): K56.691 - Other complete intestinal obstruction Assessment & Plan: NG tube in place. observation. Code(s): K56.609 - UNSP INTESTNL OBST, UNSP TO PARTIAL VERSUS COMPLETE OBST (3) Incarcerated ventral hernia Current Visit: Yes Status: Acute Assessment & Plan: POD #1, doing well. Code(s): K46.0 - UNSP ABDOMINAL HERNIA WITH OBSTRUCTION, WITHOUT GANGRENE (4) Hypertensive heart disease Current Visit: No Status: Chronic Code(s): I11.9 - HYPERTENSIVE HEART DISEASE WITHOUT HEART FAILURE (5) COPD (chronic obstructive pulmonary disease) Current Visit: Yes Status: Acute Qualifiers: COPD type: chronic bronchitis Chronic bronchitis type: unspecified Qualified Code(s): J42 - Unspecified chronic bronchitis (6) Diabetes mellitus Current Visit: Yes Status: Acute Qualifiers: Diabetes mellitus type: type 2 Diabetes mellitus half-way insulin use: with half-way use Diabetes mellitus complication status: without complication Qualified Code(s): E11.9 - Type 2 diabetes mellitus without complications; Z79.4 - retirement (current) use of insulin; Z79.4 - long term acute care registered nurse ( current) use of insulin; Z79.4 - long term acute care registered nurse (current) use of insulin; Z79.4 - retirement (current) use of insulin Code(s): E11.9 - TYPE 2 DIABETES MELLITUS WITHOUT COMPLICATIONS
[2018-02-19] MEDS: SUBLIMAZE 100 MCG/2 ML IV PRN ×2 (14:23→21:58)
[2018-02-20] MEDS: MEFOXIN 1 Gm/ D5W 50 Ml** 1 G/50 ML ML IV SCH ×4 (00:01→17:43)
[2018-02-20] MEDS: Zanaflex 4 MG PO SCH ×3 (05:57→22:10)
[2018-02-20] MEDS: SUBLIMAZE 100 MCG/2 ML IV PRN ×4 (06:43→22:00)
--- NOTE | 2018-02-20 07:42 | PCM.NOTE ---
Date and Time: 02/20/18 0739 Subjective Assessment: patient is doing well, c/o right ear pain, NG is in right nares. thinks she has passed some flatus, pain is controlled Objective Exam General Appearance: no apparent distress, alert Skin Exam: normal color, warm, dry Respiratory Exam: normal breath sounds, lungs clear, No respiratory distress Cardiovascular Exam: regular rate/rhythm, normal heart sounds Gastrointestinal/Abdomen Exam: soft, No normal bowel sounds, No tenderness, No distention Extremity Exam: normal inspection, normal range of motion OBJECTIVE DATA Vital Signs: Vital Signs - 24 hr Temp Pulse Resp BP Pulse Ox 02/20/18 07:05 76 18 94 L 02/20/18 04:00 100.1 F 75 23 97/36 97 02/20/18 00:00 98.7 F 66 18 103/27 98 02/19/18 20:05 85 16 97 02/19/18 20:00 87 02/19/18 19:57 98.7 F 87 16 104/47 97 02/19/18 16:07 98.2 F 83 14 121/52 97 02/19/18 16:00 83 02/19/18 15:09 78 94/36 02/19/18 14:30 83 108/53 02/19/18 14:00 80 92/40 02/19/18 13:30 83 112/49 02/19/18 13:00 98.1 F 78 15 82/65 98 02/19/18 12:00 79 02/19/18 10:00 97 02/19/18 08:35 80 88/40 02/19/18 08:00 98.5 F 77 12 82/49 100 Oxygen-Last 24 hours O2 Percentage 2 Liters = 28% O2 Percentage 2 Liters = 28% O2 Percentage 2 Liters = 28% O2 Percentage 2 Liters = 28% O2 Percentage 2 Liters = 28% O2 Percentage 2 Liters = 28% Pain Assessment - Last Documented Pain Intensity 8 Pain Scale Used 0-10 Pain Scale Intake and Output: Intake & Output 02/17/18 02/18/18 02/19/18 02/20/18 11:59 11:59 11:59 11:59 Intake Total 753 2589 Output Total 500 935 Balance 253 1654 Weight 88 kg 89.4 kg Lab Results: Accuchecks Date 02/20/18 Date 02/20/18 Date 02/20/18 Date 02/19/18 Time 07:32 Time 04:30 Time 00:30 Time 19:56 Accucheck Value: 192 Accucheck Value: 195 Accucheck Value: 183 Accucheck Value: 173 Accucheck Value: 130 Lab Results-Last 24 Hours 02/19/18 Range/Units 10:23 Sodium 141 (137-145) mmol/L Potassium 5.0 (3.5-5.1) mmol/L Chloride 112 H (98-107) mmol/L Carbon Dioxide 19 L (22-30) mmol/L Anion Gap 13.9 (5-15) MEQ/L BUN 37 H (7-17) mg/dL Creatinine 1.83 H (0.52-1.04) mg/dL Estimated GFR 28.9 ML/MIN Glucose 185 H (74-106) mg/dL Calcium 6.9 L (8.4-10.2) mg/dL Assessment/Plan (1) Incarcerated ventral hernia Current Visit: Yes Status: Acute Assessment & Plan: s/p repair Code(s): K46.0 - UNSP ABDOMINAL HERNIA WITH OBSTRUCTION, WITHOUT GANGRENE (2) COPD (chronic obstructive pulmonary disease) Current Visit: Yes Status: Acute Qualifiers: COPD type: chronic bronchitis Chronic bronchitis type: unspecified Qualified Code(s): J42 - Unspecified chronic bronchitis (3) Hypotension Current Visit: Yes Status: Acute Qualifiers: Hypotension type: postprocedural hypotension Qualified Code(s): I95.81 - Postprocedural hypotension Assessment & Plan: hold norvasc and benicar, continue fluids. observe Code(s): I95.9 - HYPOTENSION, UNSPECIFIED
[2018-02-20] MEDS: NORCO 5/325 MG PO PRN ×3 (08:43→16:47)
[2018-02-20] MEDS: xanAX 0.5 MG PO SCH (08:43)
[2018-02-20] MEDS: Klor Con 10 MEQ PO SCH (08:44)
[2018-02-20] MEDS: ENOXAPARIN SODIUM SQ SCH (08:44)
--- NOTE | 2018-02-20 09:41 | CONS ---
CONSULT DATE: 02/18/2018 HISTORY: A 72 year-old female obese came in with dry heaves, increased abdominal pain. She has had a chronic ventral hernia. She had prior right paramedian incision. Dr. Ventura had actually seen her in the recent past and was planning on repair. However, she came in and had CT scan and thought she had incarcerated colon causing obstruction but was not felt to be reducible. It was felt she needed emergent surgery. PAST MEDICAL HISTORY: Obesity, hypertension. PAST SURGICAL HISTORY: She had an open appendectomy. She had an open cholecystectomy in the past. She denied any bowel surgery according to the patient. She did have prior colonoscopy a couple years ago that was okay according to the patient. HOME MEDICATIONS: It does look like she takes some insulin. ALLERGIES: NKDA. HONEY BEE VENOM. FAMILY HISTORY: Negative for cancer. SOCIAL HISTORY: No smoking. REVIEW OF SYSTEMS: Hypertension as mentioned above. She does take some insulin. Twelve systems reviewed per admission assessment. No chest pain or palpitations other systems negative or noncontributory as above and per preadmission questionnaire. PHYSICAL EXAMINATION: GENERAL: No acute distress. HEENT: Sclera nonicteric. She has NG in position. NECK: No JVD. CHEST: Equal excursion, nonlabored breathing. CVS: Regular rhythm and pulse. ABDOMEN: Obese, soft, incarcerated ventral hernia right abdomen right paramedian hernia. EXTREMITIES: No significant edema. NEURO: Alert, moving extremities symmetrically. No gross motor deficits noted. IMPRESSION: Incarcerated obstructing incisional hernia unclear whether any strangulation or not. Either way needs emergent operation to repair incarcerated and/or strangulated hernia, possible mesh, possible bowel resection, possible ostomy depending operative findings. Risks and benefits explained in detail but not limited to bleeding or infection, risk of wound complications, infection, hernia or dehiscence, risk of recurrent hernia, risk of mesh infection possibly requiring removal if mesh used, risk of adhesion, scar formation, obstruction or ileus. If resection necessary risk of anastomotic complications, fistula formation, abscess formation possibly requiring other procedures even diverting ostomy, possibility of need of diversion ostomy at the get go depending on operative findings. Small risk of risk bowel, bladder or blood vessel or ureter issues or injury possibly requiring other procedures, ongoing morbidity, general risk of anesthesia, deep venous thrombosis, pulmonary embolism, pneumonia, risk of cardiopulmonary event but not limited to. She accepts the risks and agrees to the planned procedure, will proceed with OR time available. Repair incarcerated ventral incisional hernia possible bowel resection, possible ostomy, possible mesh depending on operative findings.
--- NOTE | 2018-02-20 10:19 | OP ---
SURGERY DATE/TIME: 02/18/2018 1640 PREOPERATIVE DIAGNOSIS: Incarcerated recurrent ventral incisional hernia, large bowel obstruction. POSTOPERATIVE DIAGNOSIS: Incarcerated recurrent ventral incisional hernia, large bowel obstruction with extensive intra-abdominal adhesions. PROCEDURES: 1) Open repair of recurrent incarcerated ventral incisional hernia with mesh. 2) Extensive lysis of adhesions. SURGEON: Dr. Woody Friedman. ANESTHESIA: General. ESTIMATED BLOOD LOSS: Less than 50 to 100 cc. INDICATIONS: As noted above. Risks and benefits explained in detail and not limited to and consent obtained. DESCRIPTION OF PROCEDURE AND FINDINGS: The patient is taken to the operating room. General anesthesia induced. Abdomen prepped and draped in usual sterile fashion. After official time out and no disagreement with planned procedure, as there was some question that there may be some bowel issues I went through her midline as she had right paramedian midline incision as well as a transverse incision from previous hernia repair. Dissection carried down to the hernia sac which was opened, noted to have colon incarcerated in it as well as omentum. It took quite some time but this was carefully freed. The bowel appeared to be viable. She did have colonic ileus. Appeared to be viable. No palpable masses. It was felt that it did not warrant resection. It took an extra hour and a half to two hours to take down adhesions on both the omentum and the wall as well reducing other secondary hernias around the site with incarcerated fat carefully reducing all of these. Small bowel enterolysis was performed to reduce the chance of recurrent small bowel obstruction given all the adhesions up underneath the omentum. Copious amount of irrigation irrigating until clear. At this point the patient's old mesh did not appear effective so small Ventrilex mesh was carefully removed and passed off allowing access to better quality fascia on either side of it. It was felt to be nice repair as no bowel was entered. There is no evidence of any colon issues or enterotomy. There was one thin serosal area that was reinforced with 3-0 PDS but no evidence of any enterotomy or other issues. The bowel appeared to be viable. It was felt that no resection was warranted. At this point it was felt the mesh repair the Ventralex ST mesh was cut to appropriate dimensions about 20 cm long x 12 cm wide was soaked with coated side towards the abdominal cavity, Marlex Prolene portion towards the posterior abdominal wall secured around the edges with healthy bites of fascia circumferentially around with running 0 PDS sequential fashion with a visceral protector underneath for protection. Just prior to completely closing this mesh the visceral protector was removed. All sponge, needle and instrument counts were correct. Corners of the mesh were carefully secured under direct vision. Good hemostasis noted. At this point the attenuated fascia was then closed over the top of the mesh, second layer repair bringing fascia back towards normal position with running looped 0 PDS. Copious amount of irrigation irrigating subcu. The big cavity where the hernia had been off to the side NEO drain was placed up through this to reduce risk of seroma formation secured with PDS suture placed to bulb suction. Copious amount of irrigation irrigating until clear. Subcu closed with 3-0 Vicryl, skin closed with 4-0 Vicryl, Steri-Strips and sterile dressing applied. Anesthesia put in TAP (transversus abdominal plane) blocks at the end of the procedure.
[2018-02-20] MEDS: Dextrose 5% -0.45 NaCl 1000 ML 1,000 ML IV SCH ×2 (12:14→19:56)
[2018-02-20] MEDS ORDERED: SUBLIMAZE 250 MCG/5 ML IV ONE (16:27)
[2018-02-21] MEDS: MEFOXIN 1 Gm/ D5W 50 Ml** 1 G/50 ML ML IV SCH ×2 (00:29→05:03)
[2018-02-21] MEDS: NORCO 5/325 MG PO PRN ×3 (01:35→20:20)
[2018-02-21] MEDS: Dextrose 5% -0.45 NaCl 1000 ML 1,000 ML IV SCH ×3 (03:32→22:50)
[2018-02-21] MEDS: Zanaflex 4 MG PO SCH ×3 (04:27→21:42)
[2018-02-21] MEDS ORDERED: TYLENOL 325 MG PO PRN (04:36)
[2018-02-21] MEDS: SUBLIMAZE 100 MCG/2 ML IV PRN (05:26)
[2018-02-21 05:40] LABS: Hematocrit 31.6 % (35-47); Hemoglobin 10.1 gm/dl (12.0-16.0); Mean Platelet Volume 9.3 fl (6-9.5); Platelet Count 126 K/mm3 (150-450); Red Blood Count 3.13 M/mm3 (4.1-5.4); Red Cell Distribution Width 13.7 % (11.5-14.0); White Blood Count 10.5 K/mm3 (4.0-10.5)
[2018-02-21 05:52] LABS: Mean Corpuscular Hemoglobin 32.2 pg (26-32)
[2018-02-21 05:59] LABS: ALBUMIN 2.8 g/dL (3.5-5.0); ANION GAP 13.3 MEQ/L (5-15); BILIRUBIN,TOTAL 0.4 mg/dL (0.2-1.3); Calcium 7.5 mg/dL (8.4-10.2); Creatinine 1 1.61 mg/dL (0.52-1.04); Potassium 4.2 mmol/L (3.5-5.1); Total Protein 5.7 g/dL (6.3-8.2)
[2018-02-21 08:11] LABS: Lymphocytes 14 % (24-44); Neutrophils 86 % (36.0-66.0); Total Cells Counted 100
[2018-02-21 08:12] LABS: Platelet Estimate NORMAL (NORMAL)
--- NOTE | 2018-02-21 08:34 | XRAY ---
Indication: Postop fever. Comparison: February 18, 2018. Portable chest again demonstrates previous CABG surgery with new mild bibasilar infiltrates versus atelectasis without consolidation/large effusion. Remaining heart and lungs unremarkable. New NG tube with tip presumed in the stomach.
--- NOTE | 2018-02-21 09:03 | PCM.NOTE ---
Date and Time: 02/21/18 0856 Subjective Assessment: Pt tells RN she is "over it" today, not feeling that great. Didn't sleep last night. Tmax overnight 100.9. WBC 10.5. Unsure if she's passing any flatus. - Review of Systems Constitutional: Fever Abdominal/Gastrointestinal: Abdominal Pain Objective Exam General Appearance: no apparent distress, alert Neurologic Exam: oriented x 3, cooperative Skin Exam: normal color, warm, dry, No rash Respiratory Exam: lungs clear, diminished breath sounds, No crackles/rales, No rhonchi, No wheezing Cardiovascular Exam: regular rate/rhythm, normal heart sounds, No murmur Gastrointestinal/Abdomen Exam: other (hypoactive, but present, bowel sounds (LLQ ) dressing clean and dry. NEO present with serosanguinous), No tenderness, No distention Extremity Exam: normal inspection, No pedal edema, No swelling Back Exam: normal inspection, No rash OBJECTIVE DATA Vital Signs: Vital Signs - 24 hr Temp Pulse Resp BP Pulse Ox 02/21/18 07:21 99.3 F 78 18 142/66 94 L 02/21/18 04:00 98.7 F 79 20 114/52 91 L 02/21/18 00:00 100.9 F 91 H 16 118/53 91 L 02/20/18 22:15 72 16 96 02/20/18 20:00 97.9 F 74 16 120/55 95 02/20/18 16:00 98.2 F 72 16 142/58 98 02/20/18 12:00 98 F 74 14 113/56 95 Oxygen-Last 24 hours O2 Percentage 1 Liter = 24% O2 Percentage 1 Liter = 24% O2 Percentage 1 Liter = 24% Pain Assessment - Last Documented Pain Intensity 9 Pain Scale Used 0-10 Pain Scale Intake and Output: Intake & Output 02/18/18 02/19/18 02/20/18 02/21/18 11:59 11:59 11:59 11:59 Intake Total 773 2589 2611 Output Total 504 109 2639 Balance 253 1654 1319 Weight 88 kg 89.4 kg 89.3 kg Lab Results: Accuchecks Date 02/20/18 Date 02/20/18 Accucheck Value: 201 Accucheck Value: 207 Accucheck Value: 193 Accucheck Value: 201 Accucheck Value: 201 Accucheck Value: 215 Lab Results-Last 24 Hours 02/20/18 02/21/18 02/21/18 Range/Units 15:42 04:00 04:00 WBC 10.5 (4.0-10.5) K/mm3 RBC 3.13 L (4.1-5.4) M/mm3 Hgb 10.1 L (12.0-16.0) gm/dl Hct 31.6 L (35-47) % MCV 101.0 H (78-100) fl MCH 32.2 H (26-32) pg MCHC 32.0 (32-36) g/dl RDW 13.7 (11.5-14.0) % Plt Count 126 L (150-450) K/mm3 MPV 9.3 (6-9.5) fl Absolute Granulocytes 8.10 H (1.4-6.9) Segmented Neutrophils 86 H (36.0-66.0) % Lymphocytes (Manual) 14 L (24-44) % Platelet Estimate NORMAL (NORMAL) RBC Morphology NORMAL Sodium 139 (137-145) mmol/L Potassium 4.2 (3.5-5.1) mmol/L Chloride 107 (98-107) mmol/L Carbon Dioxide 23 (22-30) mmol/L Anion Gap 13.3 (5-15) MEQ/L BUN 33 H (7-17) mg/dL Creatinine 1.61 H (0.52-1.04) mg/dL Estimated GFR 33.5 ML/MIN Glucose 236 H (74-106) mg/dL Hemoglobin A1c 5.58 (4.5-6.0) % Calcium 7.5 L (8.4-10.2) mg/dL Total Bilirubin 0.40 (0.2-1.3) mg/dL AST 28 (14-36) U/L ALT 13 (0-35) U/L Alkaline Phosphatase 86 (38-126) U/L Serum Total Protein 5.7 L (6.3-8.2) g/dL Albumin 2.8 L (3.5-5.0) g/dL Radiology Exams: Radiology Procedures Category Date Time Status CHEST 1 VIEW (PORTABLE) Urgent Exams 02/21/18 07:37 Completed KUB Urgent Exams 02/21/18 08:17 Taken Assessment/Plan (1) Bowel obstruction Current Visit: Yes Status: Resolved Qualifiers: Intestinal obstruction type: other intestinal obstruction Intestinal obstruction extent: complete Qualified Code(s): K56.691 - Other complete intestinal obstruction Assessment & Plan: POD #3 today Code(s): K56.609 - UNSP INTESTNL OBST, UNSP TO PARTIAL VERSUS COMPLETE OBST (2) Pneumonia Current Visit: Yes Status: Acute Qualifiers: Pneumonia type: due to unspecified organism Laterality: bilateral Lung location: lower lobe of lung Qualified Code(s): J18.1 - Lobar pneumonia, unspecified organism Assessment & Plan: infiltrates v atelectasis, she has been using the incentive spirometer. In light of elevated temp will change cefoxitine to rocephin and add zithromax. Code(s): J18.9 - PNEUMONIA, UNSPECIFIED ORGANISM (3) Hypotension Current Visit: Yes Status: Resolved Onset Date: ~02/18/18 Qualifiers: Hypotension type: postprocedural hypotension Qualified Code(s): I95.81 - Postprocedural hypotension Code(s): I95.9 - HYPOTENSION, UNSPECIFIED (4) Incarcerated ventral hernia Current Visit: Yes Status: Resolved Onset Date: ~02/18/18 Code(s): K46.0 - UNSP ABDOMINAL HERNIA WITH OBSTRUCTION, WITHOUT GANGRENE (5) Hypertensive heart disease Current Visit: No Status: Chronic Code(s): I11.9 - HYPERTENSIVE HEART DISEASE WITHOUT HEART FAILURE (6) COPD (chronic obstructive pulmonary disease) Current Visit: Yes Status: Acute Onset Date: ~02/18/18 Qualifiers: COPD type: chronic bronchitis Chronic bronchitis type: unspecified Qualified Code(s): J42 - Unspecified chronic bronchitis (7) Diabetes mellitus Current Visit: Yes Status: Acute Onset Date: ~02/18/18 Qualifiers: Diabetes mellitus type: type 2 Diabetes mellitus prison insulin use: with boring and filling machine operator use Diabetes mellitus complication status: without complication Qualified Code(s): E11.9 - Type 2 diabetes mellitus without complications; Z79.4 - skilled nursing (current) use of insulin; Z79.4 - skilled nursing ( current) use of insulin; Z79.4 - camera systems engineer (current) use of insulin; Z79.4 - camera systems engineer (current) use of insulin Assessment & Plan: BS right around 200 Code(s): E11.9 - TYPE 2 DIABETES MELLITUS WITHOUT COMPLICATIONS
--- NOTE | 2018-02-21 09:07 | XRAY ---
Indication: Postoperative exam. Comparison: CT abdomen/pelvis February 18, 2018. KUB demonstrates mild there is and bowel loops presumed postoperative. No focal bowel dilatation or large free air. New NG tube coiled in the epigastrium and new right lower quadrant drainage tubing. Solid organs obscured. Osseous structures again demonstrates osteopenia and multilevel lumbar kyphoplasty. Impression: Probable postoperative ileus with NG tube and drainage tubing in situ.
[2018-02-21] MEDS: xanAX 0.5 MG PO SCH (10:34)
[2018-02-21] MEDS: ENOXAPARIN SODIUM SQ SCH (10:35)
[2018-02-21] MEDS: Klor Con 10 MEQ PO SCH (10:41)
[2018-02-21] MEDS: ROCEPHIN 1 Gm-D5w 50 ml Bag** 1 G/50 ML IVPB IV SCH (10:49)
[2018-02-21] MEDS: Zithromax 500 MG/ 250 ML NaCl Premix 500 MG/250 ML IVPB IV SCH (11:53)
[2018-02-22] MEDS: Zanaflex 4 MG PO SCH ×2 (06:05→06:11)
[2018-02-22] MEDS: Dextrose 5% -0.45 NaCl 1000 ML 1,000 ML IV SCH ×3 (06:39→20:07)
[2018-02-22] MEDS ORDERED: Zanaflex 4 MG PO PRN (08:56)
--- NOTE | 2018-02-22 08:58 | PCM.NOTE ---
Date and Time: 02/22/18 0857 Subjective Assessment: patient doing well, no nausea or vomiting with NG tube out. has passed some flatus, no bowel movement since surgery Objective Exam General Appearance: no apparent distress Neurologic Exam: alert, oriented x 3 Skin Exam: normal color, warm, dry Respiratory Exam: normal breath sounds, lungs clear, No respiratory distress Cardiovascular Exam: regular rate/rhythm, normal heart sounds Gastrointestinal/Abdomen Exam: soft, No normal bowel sounds (decreased bs but present), No distention, No guarding, No rebound Extremity Exam: normal inspection, normal range of motion OBJECTIVE DATA Vital Signs: Vital Signs - 24 hr Temp Pulse Resp BP Pulse Ox 02/22/18 07:41 98.7 F 77 18 149/66 90 L 02/22/18 04:00 98.5 F 73 19 126/58 92 L 02/21/18 23:58 98.7 F 75 18 110/55 93 L 02/21/18 20:00 98.0 F 82 18 127/58 93 L 02/21/18 19:13 95 02/21/18 16:00 98.7 F 78 18 124/57 91 L 02/21/18 11:31 98.4 F 89 18 142/72 90 L Pain Assessment - Last Documented Pain Intensity 0 Pain Scale Used 0-10 Pain Scale,FLACC Intake and Output: Intake & Output 02/19/18 02/20/18 02/21/18 02/22/18 11:59 11:59 11:59 11:59 Intake Total 753 2589 2611 1815 Output Total 711 395 2710 1100 Balance 253 1654 1119 715 Weight 88 kg 89.4 kg 89.3 kg 95.7 kg Lab Results: Accuchecks Date 02/22/18 Date 02/21/18 Date 02/21/18 Time 04:00 Time 23:51 Time 20:00 Accucheck Value: 167 Accucheck Value: 177 Accucheck Value: 178 Accucheck Value: 196 Accucheck Value: 275 Radiology Exams: Radiology Procedures Category Date Time Status CHEST 1 VIEW (PORTABLE) Urgent Exams 02/21/18 07:37 Completed KUB Urgent Exams 02/21/18 08:17 Completed Assessment/Plan (1) Incarcerated ventral hernia Current Visit: Yes Status: Resolved Onset Date: ~02/18/18 Code(s): K46.0 - UNSP ABDOMINAL HERNIA WITH OBSTRUCTION, WITHOUT GANGRENE (2) COPD (chronic obstructive pulmonary disease) Current Visit: Yes Status: Acute Onset Date: ~02/18/18 Qualifiers: COPD type: chronic bronchitis Chronic bronchitis type: unspecified Qualified Code(s): J42 - Unspecified chronic bronchitis (3) Hypotension Current Visit: Yes Status: Resolved Onset Date: ~02/18/18 Qualifiers: Hypotension type: postprocedural hypotension Qualified Code(s): I95.81 - Postprocedural hypotension Assessment & Plan: resolved, will observe and may need to add back meds if bp rises higher Code(s): I95.9 - HYPOTENSION, UNSPECIFIED
[2018-02-22] MEDS: Zithromax 500 MG/ 250 ML NaCl Premix 500 MG/250 ML IVPB IV SCH (09:42)
[2018-02-22] MEDS: ENOXAPARIN SODIUM SQ SCH (09:42)
[2018-02-22] MEDS: Klor Con 10 MEQ PO SCH (09:42)
[2018-02-22] MEDS: NORCO 5/325 MG PO PRN ×2 (09:44→18:30)
[2018-02-22] MEDS: xanAX 0.5 MG PO SCH (09:44)
[2018-02-22] MEDS: ROCEPHIN 1 Gm-D5w 50 ml Bag** 1 G/50 ML IVPB IV SCH (11:36)
[2018-02-23] MEDS: NORCO 5/325 MG PO PRN ×4 (01:33→23:18)
[2018-02-23] MEDS: Dextrose 5% -0.45 NaCl 1000 ML 1,000 ML IV SCH ×2 (03:36→16:43)
[2018-02-23 05:46] LABS: BASOPHIL % 0.6 % (0.0-0.4); Basophil (Absolute #) 0.03 (0-0.4); Eosinophil % 4.6 % (0.00-5.0); Eosinophil (Absolute #) 0.24 (0-0.5); Granulocyte Absolute (ANC) 3.01 (1.4-6.9); Granulocytes % 57.3 % (36.0-66.0); Hematocrit 27.2 % (35-47); Hemoglobin 8.8 gm/dl (12.0-16.0); Lymphocyte (Absolute #) 1.13 (1.0-4.6); Lymphocytes % 21.5 % (24.0-44.0); Mean Cell Volume 99.3 fl (78-100); Mean Corpuscular Hemoglobin 32.1 pg (26-32); Mean Corpuscular Hgb Concent. 32.4 g/dl (32-36); Mean Platelet Volume 9.2 fl (6-9.5); Monocyte (Absolute #) 0.84 (0.0-1.3); Platelet Count 148 K/mm3 (150-450); Red Blood Count 2.74 M/mm3 (4.1-5.4); Red Cell Distribution Width 13.1 % (11.5-14.0); White Blood Count 5.3 K/mm3 (4.0-10.5)
[2018-02-23 06:00] LABS: ANION GAP 10.2 MEQ/L (5-15); Calcium 7.7 mg/dL (8.4-10.2); Creatinine 1 1.21 mg/dL (0.52-1.04); Potassium 3.9 mmol/L (3.5-5.1)
--- NOTE | 2018-02-23 08:52 | PCM.NOTE ---
Date and Time: 02/23/18 0851 Subjective Assessment: patient tolerating clears, no nausea or vomiting. pain controlled, no complaints Objective Exam General Appearance: no apparent distress Respiratory Exam: normal breath sounds, lungs clear, No respiratory distress Cardiovascular Exam: regular rate/rhythm, normal heart sounds Gastrointestinal/Abdomen Exam: soft, normal bowel sounds, No tenderness, No mass OBJECTIVE DATA Vital Signs: Vital Signs - 24 hr Temp Pulse Resp BP Pulse Ox 02/23/18 07:21 97.8 F 68 20 135/68 97 02/23/18 06:58 100 02/23/18 04:00 97.9 F 68 17 128/60 95 02/23/18 00:00 97.8 F 67 20 151/69 97 02/22/18 23:35 94 H 24 96 02/22/18 19:00 98.4 F 77 18 136/66 94 L 02/22/18 16:00 98.4 F 78 18 132/69 90 L 02/22/18 11:46 98.4 F 76 18 148/68 90 L 02/22/18 10:16 77 18 92 L Oxygen-Last 24 hours O2 Percentage 2 Liters = 28% O2 Percentage 2 Liters = 28% Pain Assessment - Last Documented Pain Intensity 0 Pain Scale Used 0-10 Pain Scale Intake and Output: Intake & Output 02/20/18 02/21/18 02/22/18 02/23/18 11:59 11:59 11:59 11:59 Intake Total 2589 2611 1815 3382 Output Total 935 1492 1100 1945 Balance 1654 6798 281 0341 Weight 89.4 kg 89.3 kg 95.7 kg 96 kg Lab Results: Accuchecks Date 02/23/18 Date 02/22/18 Date 02/22/18 Time 04:00 Time 23:30 Time 20:00 Accucheck Value: 4,114 Accucheck Value: 140 Accucheck Value: 122 Accucheck Value: 193 Accucheck Value: 167 Accucheck Value: 151 Accucheck Value: 182 Lab Results-Last 24 Hours 02/23/18 02/23/18 Range/Units 05:35 05:35 WBC 5.3 (4.0-10.5) K/mm3 RBC 2.74 L (4.1-5.4) M/mm3 Hgb 8.8 L (12.0-16.0) gm/dl Hct 27.2 L (35-47) % MCV 99.3 (78-100) fl MCH 32.1 H (26-32) pg MCHC 32.4 (32-36) g/dl RDW 13.1 (11.5-14.0) % Plt Count 148 L (150-450) K/mm3 MPV 9.2 (6-9.5) fl Gran % 57.3 (36.0-66.0) % Eos # (Auto) 0.24 (0-0.5) Absolute Lymphs (auto) 1.13 (1.0-4.6) Absolute Monos (auto) 0.84 (0.0-1.3) Lymphocytes % 21.5 L (24.0-44.0) % Monocytes % 16.0 H (0.0-12.0) % Eosinophils % 4.6 (0.00-5.0) % Basophils % 0.6 (0.0-0.4) % Absolute Granulocytes 3.01 (1.4-6.9) Basophils # 0.03 (0-0.4) Sodium 136 L (137-145) mmol/L Potassium 3.9 (3.5-5.1) mmol/L Chloride 108 H (98-107) mmol/L Carbon Dioxide 22 (22-30) mmol/L Anion Gap 10.2 (5-15) MEQ/L BUN 21 H (7-17) mg/dL Creatinine 1.21 H (0.52-1.04) mg/dL Estimated GFR 46.6 ML/MIN Glucose 146 H (74-106) mg/dL Calcium 7.7 L (8.4-10.2) mg/dL Magnesium 1.5 L (1.6-2.3) mg/dL Radiology Exams: Radiology Procedures Category Date Time Status KUB Urgent Exams 02/21/18 08:17 Completed Assessment/Plan (1) Incarcerated ventral hernia Current Visit: Yes Status: Resolved Onset Date: ~02/18/18 Assessment & Plan: doing well, will defer to surgery to advance diet. no new changes at this time Code(s): K46.0 - UNSP ABDOMINAL HERNIA WITH OBSTRUCTION, WITHOUT GANGRENE (2) COPD (chronic obstructive pulmonary disease) Current Visit: Yes Status: Acute Onset Date: ~02/18/18 Qualifiers: COPD type: chronic bronchitis Chronic bronchitis type: unspecified Qualified Code(s): J42 - Unspecified chronic bronchitis (3) Hypotension Current Visit: Yes Status: Resolved Onset Date: ~02/18/18 Qualifiers: Hypotension type: postprocedural hypotension Qualified Code(s): I95.81 - Postprocedural hypotension Code(s): I95.9 - HYPOTENSION, UNSPECIFIED
[2018-02-23] MEDS: ROCEPHIN 1 Gm-D5w 50 ml Bag** 1 G/50 ML IVPB IV SCH (10:43)
[2018-02-23] MEDS: Klor Con 10 MEQ PO SCH (10:46)
[2018-02-23] MEDS: xanAX 0.5 MG PO SCH (10:47)
[2018-02-23] MEDS: ENOXAPARIN SODIUM SQ SCH (10:52)
[2018-02-23] MEDS: Zithromax 500 MG/ 250 ML NaCl Premix 500 MG/250 ML IVPB IV SCH (12:17)
[2018-02-23] MEDS: Ativan 2 MG/1 ML VIAL IV PRN (21:58)
[2018-02-24] MEDS: Dextrose 5% -0.45 NaCl 1000 ML 1,000 ML IV SCH ×3 (00:46→21:09)
[2018-02-24] MEDS: NORCO 5/325 MG PO PRN ×2 (08:39→21:16)
[2018-02-24] MEDS: ENOXAPARIN SODIUM SQ SCH (08:40)
[2018-02-24] MEDS: Klor Con 10 MEQ PO SCH (08:41)
[2018-02-24] MEDS: xanAX 0.5 MG PO SCH (08:45)
[2018-02-24] MEDS: ROCEPHIN 1 Gm-D5w 50 ml Bag** 1 G/50 ML IVPB IV SCH (08:46)
--- NOTE | 2018-02-24 08:54 | PCM.NOTE ---
Date and Time: 02/24/18 0850 Subjective Assessment: patient reports she had a bowel movement this morning, tolerating small amounts of clears. denies nausea or vomiting just doesn't like this type of food. pain controlled Objective Exam General Appearance: no apparent distress, alert Skin Exam: normal color, warm, dry Respiratory Exam: normal breath sounds, lungs clear, No respiratory distress Cardiovascular Exam: regular rate/rhythm, normal heart sounds Gastrointestinal/Abdomen Exam: soft, normal bowel sounds, No tenderness, No distention Extremity Exam: normal inspection, normal range of motion OBJECTIVE DATA Vital Signs: Vital Signs - 24 hr Temp Pulse Resp BP Pulse Ox 02/24/18 07:30 97.9 F 77 24 175/69 97 02/24/18 04:00 98.8 F 66 18 127/54 95 02/24/18 00:00 98.7 F 65 20 114/51 94 L 02/23/18 20:00 98.6 F 67 18 142/61 95 02/23/18 16:48 98.4 F 80 20 135/63 96 02/23/18 11:13 97.5 F 63 18 157/67 92 L 02/23/18 09:25 93 L Pain Assessment - Last Documented Pain Intensity 10 Pain Scale Used 0-10 Pain Scale Intake and Output: Intake & Output 02/21/18 02/22/18 02/23/18 02/24/18 11:59 11:59 11:59 11:59 Intake Total 2611 1815 3382 4272 Output Total 1492 1100 1945 925 Balance 2450 162 6304 3347 Weight 89.3 kg 95.7 kg 96 kg Lab Results: Accuchecks Date 02/24/18 Date 02/24/18 Date 02/24/18 Date 02/23/18 Time 08:00 Time 04:09 Time 00:05 Time 21:30 Accucheck Value: 146 Accucheck Value: 149 Accucheck Value: 165 Accucheck Value: 184 Accucheck Value: 137 Accucheck Value: 155 Multi-Disciplinary Progress Notes: Multi-Disciplinary Progress Notes 02/23/18 13:35 (created 02/23/18 14:35) Case Management Note by Nereyda Mason VISITED WITH PT AND DISCUSSED DISCHARGE PLANNING. REPORTS THAT SHE IS MOVING WELL. FEELS TIRED TODAY. ANXIOUS TO GO HOME. REPORTS THAT SHE IS TAKING IN CLEAR LIQUIDS WITHOUT DIFFICULTY. CONTINUES TO PLAN TO RETURN HOME TO PRE EPISODIC LEVEL OF [place]. HAS DAUGHTER NEXT DOOR THAT CAN ASSIST IF NEEDED. Initialized on 02/23/18 14:35 - END OF NOTE 02/23/18 11:00 Nutrition Note by Ora Lomeli F/u Note: Diet resumed to clear liquids with 25% po intake. Labs 02/23= Na 136, BUN 21, Cr 1.21, glu 146, Mg 1.5, alb 2.8, hgb 8.8, hct 27.2. Weight 89.4 kg on admission; currently 96 kg - note +fluid balance through yesterday; -200 mls today. Recommend to con't to advance diet to solids; 1800 ADA appropriate. goal #1) increase po intake >25%. Will monitor and f/u prn. TJAYA Gustafson Initialized on 02/23/18 11:00 - END OF NOTE Assessment/Plan (1) Incarcerated ventral hernia Current Visit: Yes Status: Resolved Onset Date: ~02/18/18 Assessment & Plan: doing well, bowels have moved. advance diet if ok with surgery. seems to be doing well at this time Code(s): K46.0 - UNSP ABDOMINAL HERNIA WITH OBSTRUCTION, WITHOUT GANGRENE (2) COPD (chronic obstructive pulmonary disease) Current Visit: Yes Status: Acute Onset Date: ~02/18/18 Qualifiers: COPD type: chronic bronchitis Chronic bronchitis type: unspecified Qualified Code(s): J42 - Unspecified chronic bronchitis (3) Hypotension Current Visit: Yes Status: Resolved Onset Date: ~02/18/18 Qualifiers: Hypotension type: postprocedural hypotension Qualified Code(s): I95.81 - Postprocedural hypotension Assessment & Plan: resolved at this time, will restart benicar 40mg at this time as bp increasing, was on amlodipine 10mg at home as well Code(s): I95.9 - HYPOTENSION, UNSPECIFIED
[2018-02-24] MEDS: Zithromax 500 MG/ 250 ML NaCl Premix 500 MG/250 ML IVPB IV SCH (09:38)
[2018-02-24] MEDS: Benicar 20 MG PO SCH (09:38)
[2018-02-25] MEDS: NORCO 5/325 MG PO PRN ×3 (00:03→20:06)
[2018-02-25] MEDS: Ativan 2 MG/1 ML VIAL IV PRN (00:03)
[2018-02-25] MEDS: Dextrose 5% -0.45 NaCl 1000 ML 1,000 ML IV SCH (05:00)
[2018-02-25] MEDS ORDERED: Fosamax 70 MG PO SCH (06:00)
[2018-02-25] MEDS: xanAX 0.5 MG PO SCH (08:07)
[2018-02-25] MEDS: Benicar 20 MG PO SCH (08:08)
[2018-02-25] MEDS: ENOXAPARIN SODIUM SQ SCH (08:08)
[2018-02-25] MEDS: Zithromax 500 MG/ 250 ML NaCl Premix 500 MG/250 ML IVPB IV SCH (09:08)
[2018-02-25] MEDS: Klor Con 10 MEQ PO SCH (09:36)
[2018-02-25] MEDS ORDERED: VITAMIN D2 PO SCH (10:00)
--- NOTE | 2018-02-25 11:09 | PCM.NOTE ---
Date and Time: 02/25/18 1104 Subjective Assessment: still having pain in the abdomen has had very little to eat states she doesn't like the liquids denies nausea no vomiting had diarrhea yesterday Objective Exam General Appearance: no apparent distress, alert, obese Neurologic Exam: alert, oriented x 3, cooperative, normal mood/affect, nml cerebellar function, sensation nml, No motor deficits Skin Exam: normal color, warm, dry Eye Exam: PERRL, EOMI, eyes nml inspection Ears, Nose, Throat Exam: normal ENT inspection, pharynx normal, moist mucous membranes Neck Exam: normal inspection, non-tender, supple, full range of motion Respiratory Exam: normal breath sounds, lungs clear, No respiratory distress Cardiovascular Exam: regular rate/rhythm, normal heart sounds Gastrointestinal/Abdomen Exam: soft, tenderness (mild midline no rebound or guarding limited by obesity no drainage from the incisions midline and drain tube hole), No mass Extremity Exam: normal inspection, normal range of motion Back Exam: normal inspection, normal range of motion, No CVA tenderness, No vertebral tenderness Pelvic Exam: deferred Rectal Exam: deferred OBJECTIVE DATA Vital Signs: Vital Signs - 24 hr Temp Pulse Resp BP Pulse Ox 02/25/18 07:46 98.6 F 65 18 169/73 94 L 02/25/18 04:15 97.7 F 68 22 154/70 95 02/24/18 23:37 99.0 F 65 20 144/58 95 02/24/18 20:49 84 20 97 02/24/18 20:00 98.6 F 66 18 144/62 96 02/24/18 16:00 98.2 F 75 20 148/82 98 02/24/18 12:00 98.1 F 79 20 159/73 98 Pain Assessment - Last Documented Pain Intensity 6 Pain Scale Used 0-10 Pain Scale Intake and Output: Intake & Output 02/22/18 02/23/18 02/24/18 02/25/18 11:59 11:59 11:59 11:59 Intake Total 1815 3382 4272 3186 Output Total 1100 1945 1125 1050 Balance 715 3727 3147 2136 Weight 95.7 kg 96 kg 96.2 kg Lab Results: Accuchecks Date 02/25/18 Date 02/24/18 Time 07:30 Time 22:00 Accucheck Value: 134 Accucheck Value: 141 Accucheck Value: 176 Accucheck Value: 146 Accucheck Value: 154 Assessment/Plan (1) Bowel obstruction Current Visit: Yes Status: Resolved Qualifiers: Intestinal obstruction type: other intestinal obstruction Intestinal obstruction extent: complete Qualified Code(s): K56.691 - Other complete intestinal obstruction Assessment & Plan: post op day 7 she has had very little po input she states due to not likeing the items she can select no vomiting and has 3 recorded bm yesterday will stop iv fluids and advance diet if tolerating and ok with surgery will d/c tomorrow. she is on lovenox and scds for dvt ppx Code(s): K56.609 - UNSP INTESTNL OBST, UNSP TO PARTIAL VERSUS COMPLETE OBST (2) Incarcerated ventral hernia Current Visit: Yes Status: Resolved Onset Date: ~02/18/18 Code(s): K46.0 - UNSP ABDOMINAL HERNIA WITH OBSTRUCTION, WITHOUT GANGRENE (3) COPD (chronic obstructive pulmonary disease) Current Visit: Yes Status: Acute Onset Date: ~02/18/18 Qualifiers: COPD type: chronic bronchitis Chronic bronchitis type: unspecified Qualified Code(s): J42 - Unspecified chronic bronchitis (4) Diabetes mellitus Current Visit: Yes Status: Acute Onset Date: ~02/18/18 Qualifiers: Diabetes mellitus type: type 2 Diabetes mellitus halfway insulin use: with extermination supervisor use Diabetes mellitus complication status: without complication Qualified Code(s): E11.9 - Type 2 diabetes mellitus without complications; Z79.4 - intermediate project manager (current) use of insulin; Z79.4 - intermediate project manager ( current) use of insulin; Z79.4 - intermediate (current) use of insulin; Z79.4 - intermediate project manager (current) use of insulin Code(s): E11.9 - TYPE 2 DIABETES MELLITUS WITHOUT COMPLICATIONS
[2018-02-25 15:43] LABS: 027 TOX PROD PRESUMPTIVE NEGATIVE (NEGATIVE); TOXIGENIC C. DIFF ORG NEGATIVE (NEGATIVE)
[2018-02-25] MEDS: IMODIUM 2 MG PO PRN (16:25)
[2018-02-26] MEDS: NORCO 5/325 MG PO PRN ×2 (00:04→09:14)
[2018-02-26 05:19] VITALS: PULSE 62; O2SAT 94
[2018-02-26 07:33] VITALS: BP 170/74
[2018-02-26] MEDS: xanAX 0.5 MG PO SCH (09:14)
[2018-02-26] MEDS: Benicar 20 MG PO SCH (09:14)
[2018-02-26] MEDS: ENOXAPARIN SODIUM SQ SCH (09:15)
--- NOTE | 2018-02-26 09:39 | PCM.DS ---
Discharge Summary Date of Admission: 02/18/18 17:52 Admitting Physician: SHAYE FRANCISCO Primary Care Provider: SHAYE FRANCISCO Allergies Allergies venom-honey bee [bee venom (honey bee)] Allergy (Intermediate, Verified 12:25) Hospital Summary - Hospital Course Hospital Course: She presented with worsening abdominal pain and vomiting and unable to have a bowel movement she was found to have incarcerated ventral hernia with bowel obstruction and was taken emergently to the OR for lysis of adhesions and repair of the hernia by Dr. Salvador. This was preformed and she had NG placed with bowel decompression and NEO drain. She tolerated this well and slow return of bowel function the NG was eventually pulled and slowly advanced diet until she was having good bm on 02/25 was advanced to regular diet and began having diarrhea it was negative for c. diff. 1 dose of immodium given and she had a normal bm on 02/26. Pain was well controlled with norco. no fever or chills. She was started on rocephin and azithromycin for 5 days post op for possible pneumonia but has been off now and tolerating well she has some edema in bilateral extremities and began having right knee pain with movement requiring the ambulation with a walker. This spontaneously occured on 02/25 and she is unsure of any particular injury. She is using ice for it now - Vitals & Intake/Output Vital Signs: Vital Signs Temperature 97.7 F 02/26/18 07:32 Pulse Rate 62 02/26/18 07:32 Respiratory Rate 18 02/26/18 07:32 Blood Pressure 170/74 02/26/18 07:32 O2 Sat by Pulse Oximetry 94 L 02/26/18 07:32 Oxygen-Last Documented O2 Percentage 2 Liters = 28% Intake & Output: Intake & Output 02/23/18 02/24/18 02/25/18 02/26/18 11:59 11:59 11:59 11:59 Intake Total 3382 4272 3186 540 Output Total 1945 1125 1050 1525 Balance 1437 3147 2136 -985 Weight 96 kg 96.2 kg 97.4 kg - Lab Result Diagrams: 02/23/18 05:35 02/23/18 05:35 Lab Results-Last 24 Hrs: Accuchecks Date 02/26/18 Date 02/25/18 Date 02/25/18 Date 02/25/18 Time 07:20 Time 21:30 Time 16:00 Time 11:30 Accucheck Value: 103 Accucheck Value: 116 Accucheck Value: 151 Accucheck Value: 121 Lab Results-Last 24 Hours 02/25/18 Range/Units 14:49 Stl C. diff Tox B Gene NEGATIVE (NEGATIVE) C.difficile [id number] PRESUMPTIVE NEGATIVE (NEGATIVE) Micro Results-Entire Visit: Microbiology 02/18/18 22:30 Urine Culture - Final Catherized NO GROWTH Accuchecks Date 02/26/18 Date 02/25/18 Date 02/25/18 Date 02/25/18 Time 07:20 Time 21:30 Time 16:00 Time 11:30 Accucheck Value: 103 Accucheck Value: 116 Accucheck Value: 151 Accucheck Value: 121 - Procedures and Test Procedures and Tests throughout Hospitalization: Therapy Orders & Screens 02/18/18 21:34 Oxygen NASAL CANNULA 2 lpm Comment: Diagnosis: Incarcerated hernia 02/19/18 06:10 Incentive Spirometry Assessmen UD Comment: Diagnosis: Incarcerated hernia Discharge Exam General Appearance: obese Neurologic Exam: alert, oriented x 3, cooperative Skin Exam: warm, dry Ears, Nose, Throat Exam: moist mucous membranes Neck Exam: non-tender, supple Respiratory Exam: crackles/rales (fine bibasilar), No respiratory distress, No rhonchi, No wheezing Cardiovascular Exam: regular rate/rhythm, normal heart sounds Gastrointestinal/Abdomen Exam: soft, normal bowel sounds, other (midline incision with clean dry intact covered with clean steri strips right lower quadrant drain whole healing with no drainage), No tenderness, No distention Extremity Exam: pedal edema (2+ erica LE edema), swelling, tenderness (right knee medial joint line pain and posterior joint pain with crepitus and mild to moderate effusion no warmth or redness gait antalgic wide based and use of rollator walker) Back Exam: No rash Final Diagnosis/Problem List - Final Discharge Diagnosis/Problem (1) Bowel obstruction Current Visit: Yes Status: Resolved (2) Incarcerated ventral hernia Current Visit: Yes Status: Resolved Onset Date: ~02/18/18 (3) COPD (chronic obstructive pulmonary disease) Current Visit: Yes Status: Chronic Onset Date: ~02/18/18 (4) Diabetes mellitus Current Visit: Yes Status: Chronic Onset Date: ~02/18/18 (5) Osteoarthritis of both knees Current Visit: Yes Status: Chronic (6) Obesity Current Visit: Yes Status: Chronic - Discharge Discharge Date: 02/26/18 Disposition: Home, Self-Care Condition: Fair Prescriptions: New Hydrocodone Bit/Acetaminophen [[place] 5-325 Tablet] 1 each PO Q4H PRN #24 tablet MDD 6 PRN Reason: Pain Walker [Ultra-Light Rollator] 1 each MC DAILY #1 each Continue Zolpidem Tartrate [Ambien] 5 mg PO HSPRN PRN PRN Reason: Insomnia Potassium Chloride 20 Meq [Klor-Con 20 MEQ] 20 meq PO DAILY Amlodipine Besylate 10 mg [Norvasc 10 MG] 10 mg PO DAILY Insulin Lispro [Humalog] 1 unit SQ UD Ergocalciferol (Vitamin D2) [Vitamin D] 50,000 units PO WEEKLY ALPRAZolam [Xanax 0.5 mg] 0.5 mg PO DAILY Tizanidine HCl 4 mg [Zanaflex 4 MG] 4 mg PO Q8HPRN PRN PRN Reason: Pain Olmesartan Medoxomil [Benicar] 40 mg PO DAILY Alendronate Sodium 70 mg [Fosamax 70 MG] 70 mg PO WEEKLY Furosemide 1 tablet PO BID Follow up with: SHAYE FRANCISCO MD [Primary Care Provider] - 03/01/18 11:15 am KAHLIL SALVADOR [COURTESY STAFF] - 1 Week
[2018-02-26] MEDS: IMODIUM 2 MG PO PRN (10:09)
== END 2018-02-26 11:15 | disposition home or self-care (01) | DRG 335 ==
LOC: ED 12:04 → ICU 17:52 → MED SURG 02-20 14:54
PROVIDERS: ADMIT Family Medicine; ATTEND Family Medicine
PROC: 0WUF0JZ Supplement Abdominal Wall with Synthetic Substitute, Open Approach (ICD-10-PCS; principal; 2018-02-18)
PROC: 0DN80ZZ Release Small Intestine, Open Approach (ICD-10-PCS; 2018-02-18)
DX: K46.0 Unspecified abdominal hernia with obstruction, without gangrene (principal); J18.1 Lobar pneumonia, unspecified organism; K56.691 Other complete intestinal obstruction; K56.609 Unspecified intestinal obstruction, unspecified as to partial versus complete obstruction; K91.30 Postprocedural intestinal obstruction, unspecified as to partial versus complete; I95.81 Postprocedural hypotension; E66.9 Obesity, unspecified; I10 Essential (primary) hypertension; J44.9 Chronic obstructive pulmonary disease, unspecified; G62.9 Polyneuropathy, unspecified; E11.9 Type 2 diabetes mellitus without complications; M17.0 Bilateral primary osteoarthritis of knee; G47.00 Insomnia, unspecified; F51.9 Sleep disorder not due to a substance or known physiological condition, unspecified; Z79.4 Long term (current) use of insulin; F41.9 Anxiety disorder, unspecified; R10.9 Unspecified abdominal pain; Z85.42 Personal history of malignant neoplasm of other parts of uterus; Z79.899 Other long term (current) drug therapy
CPT/HCPCS: 36000; 36415; 64488; 71045; 74018; 74176; 76937; 80048; 80053; 81000; 82962; 83036; 83690; 83735; 85025; 85610; 87086; 87493; 93005; 94640; 94760; 96360; 96361; 96374; 96375; 96376; 99100; 99285; J0330; J0456; J0694; J0696; J1650; J2060; J2270; J2370; J2405; J2704; J3010; L0625; A9270-GY

== ENCOUNTER 2019-04-11 22:27 | Emergency (ER) | payer MEDICARE ==
--- NOTE | 2019-04-11 22:36 | ERPHSYRPT ---
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 pt felt her blood glucose low so she ate peanut butter and marshmallow cream to raise it. pt took her blood sugar and it was 200 so pt took 30 units subq reg insulin. next thing she woke up on the floor with painful lower back and right wrist. no head injury and no cp. no neck injury and no abd pain. Timing/Duration: today Severity: moderate Associated Symptoms: No nausea, No vomiting, No abdominal pain, No diaphoresis, No chest pain, No headaches Allergies/Adverse Reactions: venom-honey bee [bee venom (honey bee)] Allergy (Intermediate, Verified 12:25) Penicillins Allergy (Verified 04/11/19 22:57) Home Medications: Amlodipine Besylate 10 mg [Norvasc 10 MG] 10 mg PO DAILY 04/22/17 [History] Insulin Lispro [Humalog] 1 unit SQ UD 04/22/17 [History] Potassium Chloride 20 Meq [Klor-Con 20 MEQ] 20 meq PO DAILY 04/22/17 [History] Zolpidem Tartrate [Ambien] 5 mg PO HSPRN PRN 04/22/17 [History] ALPRAZolam [Xanax 0.5 mg] 0.5 mg PO DAILY 12/16/17 [History] Alendronate Sodium 70 mg [Fosamax 70 MG] 70 mg PO WEEKLY 12/16/17 [History ] Ergocalciferol (Vitamin D2) [Vitamin D] 50,000 units PO WEEKLY 12/16/17 [History ] Olmesartan Medoxomil [Benicar] 40 mg PO DAILY 12/16/17 [History] Tizanidine HCl 4 mg [Zanaflex 4 MG] 4 mg PO Q8HPRN PRN 12/16/17 [History] Furosemide 1 tablet PO BID 02/26/18 [History] Hx Tetanus, Diphtheria Vaccination/Date Given: No Hx Influenza Vaccination/Date Given: Yes Hx Pneumococcal Vaccination/Date Given: No - Review of Systems Constitutional: No Symptoms Eyes: No Symptoms Ears, Nose, & Throat: No Symptoms Respiratory: No Symptoms, No Cough, No Dyspnea Cardiac: No Symptoms, No Chest Pain Abdominal/Gastrointestinal: No Symptoms, Appetite Changes, No Abdominal Pain, No Nausea, No Vomiting, No Diarrhea Musculoskeletal: Back Pain, Fall, Joint Pain (right wrist) Skin: Other (right hand skin tears. ) Neurological: No Symptoms Psychological: No Symptoms Endocrine: No Symptoms Hematologic/Lymphatic: No Symptoms Immunological/Allergic: No Symptoms All Other Systems: Reviewed and Negative - Past Medical History Pertinent Past Medical History: Yes Neurological History: Peripheral Neuropathy ENT History: No Pertinent History Cardiac History: Other Respiratory History: No Pertinent History Endocrine Medical History: Diabetes Type II Musculoskeletal History: Other GI Medical History: Other History: No Pertinent History, Other Psycho-Social History: Anxiety Female Reproductive Disorders: Uterine Cancer Other Medical History: Cataract removal with lens implant bilateral. kidney stone - Past Surgical History Past Surgical History: Yes Neuro Surgical History: No Pertinent History Cardiac: CABG, Cardiac Catheterization Respiratory: Chest Surgery Gastrointestinal: Appendectomy, Cholecystectomy, Hernia Repair Genitourinary: No Pertinent History Musculoskeletal: No Pertinent History, Orthopedic Surgery, Other Female Surgical History: No Pertinent History Other Surgical History: erica IOL implant,cataract removal,IMANI back,,states bone bx at [facility], T&A, 2 kyphoplasty,hernia repair - Social History Smoking Status: Never smoker How long have you smoked: 10years Exposure to second hand smoke: No Drug Use: none Patient Lives Alone: No - Nursing Vital Signs Nursing Vital Signs: Initial Vital Signs Temperature 97.5 F 04/11/19 22:43 Pulse Rate 67 04/11/19 22:43 Respiratory Rate 20 04/11/19 22:43 Blood Pressure 153/52 04/11/19 22:43 O2 Sat by Pulse Oximetry 96 04/11/19 22:43 Pain Scale Pain Intensity 9 - Physical Exam General Appearance: no apparent distress, alert, anxiety Eye Exam: PERRL/EOMI, eyes nml inspection Ears, Nose, Throat Exam: normal ENT inspection, moist mucous membranes Neck Exam: normal inspection, non-tender, supple, full range of motion Respiratory Exam: normal breath sounds, lungs clear, airway intact, No chest tenderness, No respiratory distress Cardiovascular Exam: regular rate/rhythm, normal heart sounds, normal peripheral pulses Gastrointestinal/Abdomen Exam: soft, normal bowel sounds, No tenderness Pelvic Exam: not done Rectal Exam: not done Back Exam: muscle spasm (right paraspinous muscles) Extremity Exam: normal range of motion, pelvis stable, tenderness (right wrist) Neurologic Exam: alert, oriented x 3, cooperative, 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, normal mood/affect, nml cerebellar function Skin Exam: other (skin tears small right hand) Lymphatic Exam: No adenopathy SpO2 Interpretation: normal O2 Delivery: Room Air Ordered Tests: Active Orders 24 hr Category Date Time Status ACCUCHECK [Accucheck] STAT Care 04/11/19 22:59 Active LUMBAR LIMITED (2 OR 3 VIEWS) Stat Exams 04/11/19 22:58 Ordered WRIST (MIN 3 VIEWS) Stat Exams 04/11/19 22:58 Ordered - Progress Progress: improved Progress Note: 04/11/19 23:34 xray lumbar spine-no acute fx or subluxation xray right wrist-no acute fx or dislocation Counseled pt/family regarding: lab results, diagnosis, rad results - Departure Departure Disposition: Home Clinical Impression: Fall, Skin tear Condition: Stable Critical Care Time: No Referrals: NOHEMY LANDERS NP [Primary Care Provider] - Additional Instructions: keep all skin tear sites clean daily with soap and water. apply antibiotic ointment daily. follow up with primary doctor for further management Prescriptions: Oxycodone HCl/Acetaminophen [Percocet 5-325 mg Tablet] 1 each PO Q12H PRN PRN # 6 tablet MDD 2 PRN Reason: Pain
[2019-04-11] MEDS ORDERED: PERCOCET TABLET 5/325MG PO STA (23:38)
[2019-04-11] MEDS ORDERED: PERCOCET TABLET 5/325MG ONE ×2 (23:43→23:48)
[2019-04-11] MEDS ORDERED: BACIGUENT PACKET TP ONE (23:55)
[2019-04-11] MEDS ORDERED: BACIGUENT PACKET ONE (23:57)
[2019-04-12 00:11] VITALS: BP 183/65; PULSE 68; O2SAT 98
--- NOTE | 2019-04-12 10:38 | XRAY ---
Indication: Pain following fall. Comparison: May 05, 2017. 3 views of the right wrist demonstrates new anterior fixation plate/screws fixating previous distal radius fracture. Elsewhere stable osteopenia, old 5th metacarpal fracture, mild degenerative changes base 1st metacarpal, and scattered vascular calcifications. No other bony, articular, or soft tissue abnormalities.
--- NOTE | 2019-04-12 10:44 | XRAY ---
Indication: Low back pain following fall. Comparison: January 30, 2016. 3 views of the lumbar spine again demonstrates osteopenia, L1-L5 kyphoplasty, multilevel remote compression fractures, heavy vascular calcifications, pelvic curvilinear calcifications, and bilateral hip surgical clips. No new/acute findings.
== END 2019-04-12 00:10 | disposition home or self-care (01) ==
LOC: ED 22:27
DX: S61.411A Laceration without foreign body of right hand, initial encounter (principal); M54.5 Low back pain; M25.531 Pain in right wrist; M62.830 Muscle spasm of back; W19.XXXA Unspecified fall, initial encounter; E11.9 Type 2 diabetes mellitus without complications; Z79.4 Long term (current) use of insulin; Z79.899 Other long term (current) drug therapy
CPT/HCPCS: 72100; 73110; 82962; 99284; A9270-GY

== ENCOUNTER 2021-09-02 19:26 | Emergency (ER) | payer MEDICARE ==
[2013-07-17 08:30] VITALS: BP 146/62
[2021-09-02] MEDS ORDERED: Sodium Chloride 0.9% 1000 ML 1,000 ML IV SCH (19:45)
[2021-09-02] MEDS ORDERED: FEVERALL 650 MG ONE ×2 (19:53→23:20)
[2021-09-02] MEDS ORDERED: Sodium Chloride 0.9% 1000 ML 1,000 ML ONE (19:55)
[2021-09-02] MEDS ORDERED: Ativan 2 MG/1 ML VIAL IV ONE ×3 (20:04→21:57)
[2021-09-02] MEDS ORDERED: Ativan 2 MG/1 ML VIAL ONE ×2 (20:05→21:58)
[2021-09-02] MEDS ORDERED: FEVERALL 650 MG PR ONE ×2 (20:07→23:19)
[2021-09-02 20:10] LABS: A-aADO2 127; ABG HEMOGLOBIN 12.4; ABG POTASSIUM 4.1 (3.5-5.1); ABG SITE LEFT BRACHIAL; ARTERIAL BLD GAS O2 SATURATION 98.8 % (95-100); ARTERIAL BLOOD GAS BASE EXCESS 2.9 (-2.0-2.0); ARTERIAL BLOOD GAS FIO2 44 %; ARTERIAL BLOOD GAS PCO2 43 mmHg (35-45); ARTERIAL BLOOD GAS PO2 133 mmHg (75-100); ARTERIAL BLOOD GAS pH 7.42 (7.35-7.45); CARBOXYHEMOGLOBIN 0.9 % THgb (0.0-6.9); HCO3- 27.9 (22-28); HGB O2 SAT 96.7 g/dF (94-100); Methhemoglobin 1.2 % (1.4-1.5)
[2021-09-02 20:11] LABS: Absolute Neutrophil Ct (ANC) 24.31 (1.4-6.9); BASOPHIL % 0.1 % (0.0-0.4); Basophil (Absolute #) 0.02 (0-0.4); Eosinophil (Absolute #) 0 (0-0.5); Hematocrit 38.7 % (35-47); Hemoglobin 12.1 gm/dl (12.0-16.0); Lymphocytes % 2.7 % (24.0-44.0); Mean Cell Volume 98.2 fl (78-100); Mean Corpuscular Hemoglobin 30.7 pg (26-32); Mean Corpuscular Hgb Concent. 31.3 g/dl (32-36); Mean Platelet Volume 8.3 fl (7.5-11.0); Monocyte (Absolute #) 0.94 (0.0-1.3); Monocytes % 3.6 % (0.0-12.0); Neutrophil % 93.6 % (36.0-66.0); Platelet Count 173 K/mm3 (150-450); Red Blood Count 3.94 M/mm3 (4.1-5.4); Red Cell Distribution Width 13.2 % (11.5-14.0)
--- NOTE | 2021-09-02 20:23 | ERPHSYRPT ---
- History of Present Illness Time Seen by Provider: 09/02/21 19:33 Source: patient Exam Limitations: no limitations Patient Subjective Stated Complaint: Pt's daughter found her at home, laying in bed, foaming at the mouth, unresponsive. Triage Nursing Assessment: pt arrived via EMS. Pt was found at home by her daughter, laying in bed, foaming at the mouth, unresponsive. Pt's BS upon arrival of EMS was 45. There was a log written beside bed of BS of 101 presumably from taken earlier in the day. Pt unresponsive upon arrival to ER, does not respond to painful stimuli. Pt's pupils are 3, unresponsive, has eye gaze to right. Pt very warm to touch. Family's last known well was 2300 on 09/01/21. Lungs clear, heart tones reg. Pt was incontinent of urine and stool upon arrival to ER. Physician History: Patient is a 75-year-old female who arrived to our ED via EMS unresponsive. Per EMS patient's daughter found patient at her home lying in bed foaming from the mouth and unresponsive. Daughter found patient had approximately 6:30 PM. Then 911 was called. Upon EMS arrival patient was found to have a blood sugar of 45. Daughter conveyed to EMS that patient was last normal at approximately 10:50 PM last night 09-20. Patient is unable to provide any history or information at this time due to condition. Patient is warm to touch. On exam patient was observed to have a fixed right-sided gaze. Patient is incontinent of urine and stool. She also has a stage II sacral decubitus ulcer. Patient lives alone. However daughter lives nearby. Daughter has no other information at this time. Timing/Duration: yesterday Severity: moderate Modifying Factors: Improves With: nothing Associated Symptoms: fever Allergies/Adverse Reactions: Penicillins Allergy (Verified 09/02/21 20:00) Hx Tetanus, Diphtheria Vaccination/Date Given: Yes Hx Influenza Vaccination/Date Given: No Hx Pneumococcal Vaccination/Date Given: Yes Immunizations Up to Date: Yes Travel Risk - International Travel Have you traveled outside of the country in past 3 weeks: No - Coronavirus Screening Are you exhibiting any of the following symptoms?: No Close contact with a COVID-19 positive Pt in past 14-21 Days: No - Vaccine Status Have you recieved a Covid-19 vaccination: Yes 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 - Vaccination Dates Date of 2cond Vaccination (if applicable): 01/2021 - Review of Systems All Other Systems: Unable due to condition - Past Medical History Pertinent Past Medical History: Yes Neurological History: No Pertinent History ENT History: No Pertinent History Cardiac History: Angina, High Cholesterol, Hypertension Respiratory History: No Pertinent History Endocrine Medical History: Diabetes Type II Musculoskeletal History: No Pertinent History GI Medical History: Gallbladder Disease History: Renal Disease Psycho-Social History: Anxiety Female Reproductive Disorders: Uterine Cancer - Past Surgical History Past Surgical History: Yes Neuro Surgical History: No Pertinent History Cardiac: CABG, Cardiac Catheterization, Cardiac Stent Respiratory: No Pertinent History Gastrointestinal: Cholecystectomy Genitourinary: No Pertinent History Musculoskeletal: No Pertinent History Female Surgical History: No Pertinent History - Social History Smoking Status: Former smoker Exposure to second hand smoke: No Drug Use: none Patient Lives Alone: Yes - Female History Hx Now: No - Nursing Vital Signs Nursing Vital Signs: Initial Vital Signs Temperature 100.5 F 09/02/21 19:28 Pulse Rate 73 09/02/21 19:28 Respiratory Rate 20 09/02/21 19:28 Blood Pressure 155/66 09/02/21 19:28 O2 Sat by Pulse Oximetry 100 09/02/21 19:28 Pain Scale Pain Intensity 0 - Physical Exam General Appearance: no apparent distress, alert, other (There is bloody saliva dried at the lateral margins of her mouth towards the left side.) Eye Exam: other (Right-sided gaze. Pupils appear to be fixed at 3 to 4 mm.) Ears, Nose, Throat Exam: normal ENT inspection, TMs normal, moist mucous membranes, other (Dry oropharynx. There is an obvious superficial tongue laceration measuring approximately 6 mm.) Neck Exam: normal inspection, non-tender, supple, full range of motion Respiratory Exam: normal breath sounds, lungs clear, airway intact, diminished breath sounds (Slightly shallow breath sounds.), No respiratory distress Cardiovascular Exam: regular rate/rhythm, normal heart sounds, normal peripheral pulses, capillary refill <2 sec, No tachycardia, No bradycardia Gastrointestinal/Abdomen Exam: soft, normal bowel sounds, No tenderness, No mass, No rebound, No organomegaly, No splenomegaly Pelvic Exam: not done Rectal Exam: deferred Back Exam: normal inspection, normal range of motion, No CVA tenderness, No vertebral tenderness Extremity Exam: normal inspection, normal range of motion, pelvis stable Neurologic Exam: other (Patient unresponsive responds to noxious stimuli. Patient is biting her tongue.) Skin Exam: normal color, warm, dry, other (No signs of trauma. Healed anterior chest wall scar appears to be a healed sternotomy incision.), No rash Lymphatic Exam: No adenopathy SpO2 Interpretation: normal SpO2: 97 O2 Delivery: Room Air - Course Nursing assessment & vital signs reviewed: Yes EKG Interpreted by Me: RATE (73), Sinus Rhythm, NORMAL AXIS, NORMAL INTERVALS (PVCs observed.) - Radiology Exams Chest X-ray Interpretation: Interpreted by me (Haziness bilateral lung bases. Left greater than right. No opacities. No cardiomegaly. Intact bony thorax.) - CT Exams Head CT Interpretation: Tele-radiologist Report (No known comps. Minimal motion artifact. Grossly nonacute senile brain.) Abdomen/Pelvis CT Interpretation: Tele-radiologist Report (Bilateral hydronephrosis. Ureteral lithiasis. UPJ obstruction, new soft tissue mass in the presacral region, possible rectal tumor. Moderate size hiatal hernia. Tiny bilateral pleural effusions, left inguinal hernia containing portion of colon with no evidence of obstruction. Osteoporosis with ) Ordered Tests: Active Orders 24 hr Category Date Time Status Senior Net Programmer STAT Care 09/02/21 19:32 Active EKG-ER Only STAT Care 09/02/21 19:31 Active Zamora [Catheter-[place] Zamora] STAT Care 09/02/21 19:56 Active IV Insertion STAT Care 09/02/21 19:31 Active IV Insertion-2nd Peripheral STAT Care 09/02/21 19:59 Active POCT Glucose Check STAT Care 09/02/21 19:59 Active POCT Glucose Check STAT Care 09/02/21 23:15 Active Pulse Oximetry (ED) STAT Care 09/02/21 19:31 Active ABDOMEN AND PELVIS W/0 CONTRAS [CT] Stat Exams 09/02/21 22:05 Taken CHEST 1 VIEW (PORTABLE) Stat Exams 09/02/21 19:32 Taken CHEST 1 VIEW (PORTABLE) Stat Exams 09/02/21 22:59 Taken HEAD WITHOUT CONTRAST [CT] Stat Exams 09/02/21 19:30 Taken ABG [ARTERIAL BLOOD GASES] Stat Lab 09/02/21 19:40 Completed BLOOD CULTURE Stat Lab 09/02/21 20:05 Received BNP [NT PRO BNP] Stat Lab 09/02/21 20:00 Completed CBC W DIFF Stat Lab 09/02/21 20:05 Completed CK-Creatinine Phosphokinase Stat Lab 09/02/21 20:05 Completed CMP Stat Lab 09/02/21 20:05 Completed CULTURE,URINE Stat Lab 09/02/21 19:57 Received CULTURE,URINE Stat Lab 09/02/21 19:57 Received ETHYL ALCOHOL Stat Lab 09/02/21 20:05 Completed Lactic Acid Stat Lab 09/02/21 19:40 Completed MAGNESIUM Stat Lab 09/02/21 20:05 Completed POCT GLUCOSE Stat Lab 09/02/21 20:01 Completed POCT GLUCOSE Stat Lab 09/02/21 23:14 Completed PROTIME WITH INR Stat Lab 09/02/21 20:05 Completed PTT Stat Lab 09/02/21 20:05 Completed TROPONIN Q3H Lab 09/02/21 20:05 Completed TROPONIN Q3H Lab 09/02/21 23:02 Completed TROPONIN Q3H Lab 09/03/21 01:45 Ordered TROPONIN Q3H Lab 09/03/21 04:45 Ordered TROPONIN Q3H Lab 09/03/21 07:45 Ordered UA W/RFX UR CULTURE Stat Lab 09/02/21 19:57 Completed Urine Triage Profile Stat Lab 09/02/21 19:57 Completed Intubate Patient STAT RT 09/02/21 23:26 Active Vent Settings [Ventilator Management] Q4H RT 09/02/21 23:31 Active Medication Summary Generic Name Dose Route Start Last Admin Trade Name Freq PRN Reason Stop Dose Admin Sodium Chloride 1,000 mls @ 100 mls/hr 09/02/21 19:45 09/02/21 19:57 Sodium Chloride 0.9% 1000 Ml IV 10/02/21 19:44 100 mls/hr .Q10H HANNA Administration Levetiracetam 1,500 mg/ 115 mls @ 220 mls/hr 09/02/21 23:33 09/02/21 23:42 Dextrose IV 09/03/21 00:04 220 mls/hr STAT ONE Administration Vancomycin HCl 1 gm in 200 mls @ 125 mls/hr 09/02/21 23:42 Vancomycin 1 Gram/200 Ml Bag IV 09/03/21 01:17 STAT ONE Discontinued Medications Generic Name Dose Route Start Last Admin Trade Name Freq PRN Reason Stop Dose Admin Acetaminophen Confirm 09/02/21 19:53 Acetaminophen 650 Mg Supp.Rect Administered 09/02/21 19:54 Dose 650 mg .ROUTE .STK-MED ONE Acetaminophen 650 mg 09/02/21 20:07 09/02/21 20:10 Acetaminophen 650 Mg Supp.Rect AK 09/02/21 20:08 650 mg STAT ONE Administration Acetaminophen 650 mg 09/02/21 23:19 09/02/21 23:20 Acetaminophen 650 Mg Supp.Rect AK 09/02/21 23:20 650 mg STAT ONE Administration Acetaminophen Confirm 09/02/21 23:20 Acetaminophen 650 Mg Supp.Rect Administered 09/02/21 23:21 Dose 650 mg .ROUTE .STK-MED ONE Fentanyl Citrate 100 mcg 09/02/21 22:10 09/02/21 22:12 Fentanyl Citrate 100 Mcg/2 Ml* Vial IV 09/02/21 22:11 100 mcg STAT ONE Administration Fentanyl Citrate Confirm 09/02/21 22:11 Fentanyl Citrate 100 Mcg/2 Ml* Vial Administered 09/02/21 22:12 Dose 100 mcg .ROUTE .STK-MED ONE Furosemide 40 mg 09/02/21 21:20 09/02/21 21:24 Furosemide 40 Mg/4 Ml Vial IV 09/02/21 21:21 40 mg STAT ONE Administration Furosemide Confirm 09/02/21 21:23 Furosemide 40 Mg/4 Ml Vial Administered 09/02/21 21:24 Dose 40 mg .ROUTE .STK-MED ONE Propofol Confirm 09/02/21 22:49 Propofol 1000 Mg/100 Ml Bottle Administered 09/02/21 22:50 Dose 100 mls @ ud IV .STK-MED ONE Dextrose Confirm 09/02/21 23:35 D5w 100ml Mini Bag 100 Ml Administered 09/02/21 23:36 Dose 100 mls @ ud IV .STK-MED ONE Levetiracetam Confirm 09/02/21 23:35 Levetiracetam 500 Mg/5 Ml Vial Administered 09/02/21 23:36 Dose 1,500 mg .ROUTE .STK-MED ONE Lorazepam 2 mg 09/02/21 20:04 09/02/21 20:09 Lorazepam 2 Mg/1 Ml 2 Mg Vial IV 09/02/21 20:05 2 mg STAT ONE Administration Lorazepam Confirm 09/02/21 20:05 Lorazepam 2 Mg/1 Ml 2 Mg Vial Administered 09/02/21 20:06 Dose 2 mg .ROUTE .STK-MED ONE Lorazepam 2 mg 09/02/21 21:40 09/02/21 21:41 Lorazepam 2 Mg/1 Ml 2 Mg Vial IV 09/02/21 21:41 Not Given STAT ONE Lorazepam 2 mg 09/02/21 21:57 09/02/21 21:59 Lorazepam 2 Mg/1 Ml 2 Mg Vial IV 09/02/21 21:58 2 mg STAT ONE Administration Lorazepam Confirm 09/02/21 21:58 Lorazepam 2 Mg/1 Ml 2 Mg Vial Administered 09/02/21 21:59 Dose 2 mg .ROUTE .STK-MED ONE Lab/Rad Data: Laboratory Result Diagrams 09/02/21 20:05 09/02/21 20:05 Laboratory Results 09/02/21 09/02/21 09/02/21 Range/Units 23:14 23:02 20:08 WBC (4.0-10.5) K/mm3 RBC (4.1-5.4) M/mm3 Hgb (12.0-16.0) gm/dl Hct (35-47) % MCV (78-100) fl MCH (26-32) pg MCHC (32-36) g/dl RDW (11.5-14.0) % Plt Count (150-450) K/mm3 MPV (7.5-11.0) fl Gran % (36.0-66.0) % Eos # (Auto) (0-0.5) Absolute Lymphs (auto) (1.0-4.6) Absolute Monos (auto) (0.0-1.3) Lymphocytes % (24.0-44.0) % Monocytes % (0.0-12.0) % Eosinophils % (0.00-5.0) % Basophils % (0.0-0.4) % Absolute Granulocytes (1.4-6.9) Basophils # (0-0.4) PT (9.4-12.5) SECONDS INR (0.8-3.0) APTT (25.1-36.5) SECONDS Puncture Site pCO2 (35-45) mmHg pO2 (75-100) mmHg Base Excess (-2.0-2.0) O2 Saturation (94-100) g/dF ABG pH (7.35-7.45) ABG HCO3 (22-28) ABG O2 Sat (Measured) (95-100) % Josh Test A-a Gradient a/A Ratio Hemoglobin Carboxyhemoglobin (0.0-6.9) % THgb Methemoglobin (1.4-1.5) % Potassium (3.5-5.1) Temperature C POC O2 Flow Rate % Sodium (137-145) mmol/L Chloride (98-107) mmol/L Carbon Dioxide (22-30) mmol/L Anion Gap (5-15) MEQ/L BUN (7-17) mg/dL Creatinine (0.52-1.04) mg/dL Estimated GFR ML/MIN Glucose (74-106) mg/dL POC Glucometer 131 H (74 to 106) mg/dL Lactic Acid (0.4-2.0) Calcium (8.4-10.2) mg/dL Magnesium (1.6-2.3) mg/dL Total Bilirubin (0.2-1.3) mg/dL AST (14-36) U/L ALT (0-35) U/L Alkaline Phosphatase (38-126) U/L Creatine Kinase (30-135) U/L Troponin I 0.081 H* (0.000-0.034) ng/mL NT-Pro-B Natriuret Pep (0-900) pg/mL Serum Total Protein (6.3-8.2) g/dL Albumin (3.5-5.0) g/dL Urine Color (YELLOW) Urine Appearance (CLEAR) Urine pH (5-6) Ur Specific Lily (1.005-1.025) Urine Protein (Negative) Urine Ketones (NEGATIVE) Urine Blood (0-5) Bogdan/ul Urine Nitrite (NEGATIVE) Urine Bilirubin (NEGATIVE) Urine Urobilinogen (0-1) mg/dL Ur Leukocyte Esterase (NEGATIVE) Urine WBC (Auto) (0-5) /HPF Urine RBC (Auto) (0-2) /HPF U Epithel Cells (Auto) (FEW) /HPF Urine Bacteria (Auto) (NEGATIVE) /HPF Urine Mucus (Auto) (NEGATIVE) /HPF Urine Culture Reflexed (NO) Urine Glucose (NEGATIVE) mg/dL Urine Opiates Level (NEGATIVE) Ur Methadone (NEGATIVE) Urine Barbiturates (NEGATIVE) Ur Phencyclidine (PCP) (NEGATIVE) Urine Amphetamine (NEGATIVE) U Benzodiazepine Level (NEGATIVE) Urine Cocaine (NEGATIVE) Urine Marijuana (THC) (NEGATIVE) Ethyl Alcohol (0-10) mg/dL Influenza Type A Ag NEGATIVE (NEGATIVE) Influenza Type B Ag NEGATIVE (NEGATIVE) RSV (PCR) NEGATIVE (Negative) SARS-CoV-2 (PCR) NEGATIVE (NEGATIVE) 09/02/21 09/02/21 09/02/21 Range/Units 20:05 20:05 20:05 WBC (4.0-10.5) K/mm3 RBC (4.1-5.4) M/mm3 Hgb (12.0-16.0) gm/dl Hct (35-47) % MCV (78-100) fl MCH (26-32) pg MCHC (32-36) g/dl RDW (11.5-14.0) % Plt Count (150-450) K/mm3 MPV (7.5-11.0) fl Gran % (36.0-66.0) % Eos # (Auto) (0-0.5) Absolute Lymphs (auto) (1.0-4.6) Absolute Monos (auto) (0.0-1.3) Lymphocytes % (24.0-44.0) % Monocytes % (0.0-12.0) % Eosinophils % (0.00-5.0) % Basophils % (0.0-0.4) % Absolute Granulocytes (1.4-6.9) Basophils # (0-0.4) PT 12.4 (9.4-12.5) SECONDS INR 1.05 (0.8-3.0) APTT 23.5 L (25.1-36.5) SECONDS Puncture Site pCO2 (35-45) mmHg pO2 (75-100) mmHg Base Excess (-2.0-2.0) O2 Saturation (94-100) g/dF ABG pH (7.35-7.45) ABG HCO3 (22-28) ABG O2 Sat (Measured) (95-100) % Josh Test A-a Gradient a/A Ratio Hemoglobin Carboxyhemoglobin (0.0-6.9) % THgb Methemoglobin (1.4-1.5) % Potassium 4.2 (3.5-5.1) Temperature C POC O2 Flow Rate % Sodium 136 L (137-145) mmol/L Chloride 101 (98-107) mmol/L Carbon Dioxide 28 (22-30) mmol/L Anion Gap 11.6 (5-15) MEQ/L BUN 20 H (7-17) mg/dL Creatinine 0.84 (0.52-1.04) mg/dL Estimated GFR > 60.0 ML/MIN Glucose 200 H (74-106) mg/dL POC Glucometer (74 to 106) mg/dL Lactic Acid (0.4-2.0) Calcium 8.3 L (8.4-10.2) mg/dL Magnesium 1.8 (1.6-2.3) mg/dL Total Bilirubin 0.50 (0.2-1.3) mg/dL AST 33 (14-36) U/L ALT 11 (0-35) U/L Alkaline Phosphatase 100 (38-126) U/L Creatine Kinase 600 H (30-135) U/L Troponin I 0.053 H* (0.000-0.034) ng/mL NT-Pro-B Natriuret Pep (0-900) pg/mL Serum Total Protein 6.8 (6.3-8.2) g/dL Albumin 3.6 (3.5-5.0) g/dL Urine Color (YELLOW) Urine Appearance (CLEAR) Urine pH (5-6) Ur Specific Lily (1.005-1.025) Urine Protein (Negative) Urine Ketones (NEGATIVE) Urine Blood (0-5) Bogdan/ul Urine Nitrite (NEGATIVE) Urine Bilirubin (NEGATIVE) Urine Urobilinogen (0-1) mg/dL Ur Leukocyte Esterase (NEGATIVE) Urine WBC (Auto) (0-5) /HPF Urine RBC (Auto) (0-2) /HPF U Epithel Cells (Auto) (FEW) /HPF Urine Bacteria (Auto) (NEGATIVE) /HPF Urine Mucus (Auto) (NEGATIVE) /HPF Urine Culture Reflexed (NO) Urine Glucose (NEGATIVE) mg/dL Urine Opiates Level (NEGATIVE) Ur Methadone (NEGATIVE) Urine Barbiturates (NEGATIVE) Ur Phencyclidine (PCP) (NEGATIVE) Urine Amphetamine (NEGATIVE) U Benzodiazepine Level (NEGATIVE) Urine Cocaine (NEGATIVE) Urine Marijuana (THC) (NEGATIVE) Ethyl Alcohol < 10 (0-10) mg/dL Influenza Type A Ag (NEGATIVE) Influenza Type B Ag (NEGATIVE) RSV (PCR) (Negative) SARS-CoV-2 (PCR) (NEGATIVE) 09/02/21 09/02/21 09/02/21 Range/Units 20:05 20:01 20:00 WBC 26.0 H* (4.0-10.5) K/mm3 RBC 3.94 L (4.1-5.4) M/mm3 Hgb 12.1 (12.0-16.0) gm/dl Hct 38.7 (35-47) % MCV 98.2 (78-100) fl MCH 30.7 (26-32) pg MCHC 31.3 L (32-36) g/dl RDW 13.2 (11.5-14.0) % Plt Count 173 (150-450) K/mm3 MPV 8.3 (7.5-11.0) fl Gran % 93.6 H (36.0-66.0) % Eos # (Auto) 0 (0-0.5) Absolute Lymphs (auto) 0.70 L (1.0-4.6) Absolute Monos (auto) 0.94 (0.0-1.3) Lymphocytes % 2.7 L (24.0-44.0) % Monocytes % 3.6 (0.0-12.0) % Eosinophils % 0.0 (0.00-5.0) % Basophils % 0.1 (0.0-0.4) % Absolute Granulocytes 24.31 H (1.4-6.9) Basophils # 0.02 (0-0.4) PT (9.4-12.5) SECONDS INR (0.8-3.0) APTT (25.1-36.5) SECONDS Puncture Site pCO2 (35-45) mmHg pO2 (75-100) mmHg Base Excess (-2.0-2.0) O2 Saturation (94-100) g/dF ABG pH (7.35-7.45) ABG HCO3 (22-28) ABG O2 Sat (Measured) (95-100) % Josh Test A-a Gradient a/A Ratio Hemoglobin Carboxyhemoglobin (0.0-6.9) % THgb Methemoglobin (1.4-1.5) % Potassium (3.5-5.1) Temperature C POC O2 Flow Rate % Sodium (137-145) mmol/L Chloride (98-107) mmol/L Carbon Dioxide (22-30) mmol/L Anion Gap (5-15) MEQ/L BUN (7-17) mg/dL Creatinine (0.52-1.04) mg/dL Estimated GFR ML/MIN Glucose (74-106) mg/dL POC Glucometer 188 H (74 to 106) mg/dL Lactic Acid (0.4-2.0) Calcium (8.4-10.2) mg/dL Magnesium (1.6-2.3) mg/dL Total Bilirubin (0.2-1.3) mg/dL AST (14-36) U/L ALT (0-35) U/L Alkaline Phosphatase (38-126) U/L Creatine Kinase (30-135) U/L Troponin I (0.000-0.034) ng/mL NT-Pro-B Natriuret Pep 4120 H (0-900) pg/mL Serum Total Protein (6.3-8.2) g/dL Albumin (3.5-5.0) g/dL Urine Color (YELLOW) Urine Appearance (CLEAR) Urine pH (5-6) Ur Specific Lily (1.005-1.025) Urine Protein (Negative) Urine Ketones (NEGATIVE) Urine Blood (0-5) Bogdan/ul Urine Nitrite (NEGATIVE) Urine Bilirubin (NEGATIVE) Urine Urobilinogen (0-1) mg/dL Ur Leukocyte Esterase (NEGATIVE) Urine WBC (Auto) (0-5) /HPF Urine RBC (Auto) (0-2) /HPF U Epithel Cells (Auto) (FEW) /HPF Urine Bacteria (Auto) (NEGATIVE) /HPF Urine Mucus (Auto) (NEGATIVE) /HPF Urine Culture Reflexed (NO) Urine Glucose (NEGATIVE) mg/dL Urine Opiates Level (NEGATIVE) Ur Methadone (NEGATIVE) Urine Barbiturates (NEGATIVE) Ur Phencyclidine (PCP) (NEGATIVE) Urine Amphetamine (NEGATIVE) U Benzodiazepine Level (NEGATIVE) Urine Cocaine (NEGATIVE) Urine Marijuana (THC) (NEGATIVE) Ethyl Alcohol (0-10) mg/dL Influenza Type A Ag (NEGATIVE) Influenza Type B Ag (NEGATIVE) RSV (PCR) (Negative) SARS-CoV-2 (PCR) (NEGATIVE) 09/02/21 09/02/21 09/02/21 Range/Units 19:57 19:57 19:40 WBC (4.0-10.5) K/mm3 RBC (4.1-5.4) M/mm3 Hgb (12.0-16.0) gm/dl Hct (35-47) % MCV (78-100) fl MCH (26-32) pg MCHC (32-36) g/dl RDW (11.5-14.0) % Plt Count (150-450) K/mm3 MPV (7.5-11.0) fl Gran % (36.0-66.0) % Eos # (Auto) (0-0.5) Absolute Lymphs (auto) (1.0-4.6) Absolute Monos (auto) (0.0-1.3) Lymphocytes % (24.0-44.0) % Monocytes % (0.0-12.0) % Eosinophils % (0.00-5.0) % Basophils % (0.0-0.4) % Absolute Granulocytes (1.4-6.9) Basophils # (0-0.4) PT (9.4-12.5) SECONDS INR (0.8-3.0) APTT (25.1-36.5) SECONDS Puncture Site pCO2 (35-45) mmHg pO2 (75-100) mmHg Base Excess (-2.0-2.0) O2 Saturation (94-100) g/dF ABG pH (7.35-7.45) ABG HCO3 (22-28) ABG O2 Sat (Measured) (95-100) % Josh Test A-a Gradient a/A Ratio Hemoglobin Carboxyhemoglobin (0.0-6.9) % THgb Methemoglobin (1.4-1.5) % Potassium (3.5-5.1) Temperature C POC O2 Flow Rate % Sodium (137-145) mmol/L Chloride (98-107) mmol/L Carbon Dioxide (22-30) mmol/L Anion Gap (5-15) MEQ/L BUN (7-17) mg/dL Creatinine (0.52-1.04) mg/dL Estimated GFR ML/MIN Glucose (74-106) mg/dL POC Glucometer (74 to 106) mg/dL Lactic Acid 0.7 (0.4-2.0) Calcium (8.4-10.2) mg/dL Magnesium (1.6-2.3) mg/dL Total Bilirubin (0.2-1.3) mg/dL AST (14-36) U/L ALT (0-35) U/L Alkaline Phosphatase (38-126) U/L Creatine Kinase (30-135) U/L Troponin I (0.000-0.034) ng/mL NT-Pro-B Natriuret Pep (0-900) pg/mL Serum Total Protein (6.3-8.2) g/dL Albumin (3.5-5.0) g/dL Urine Color YELLOW (YELLOW) Urine Appearance CLEAR (CLEAR) Urine pH 8.0 (5-6) Ur Specific Lily 1.011 (1.005-1.025) Urine Protein NEGATIVE (Negative) Urine Ketones NEGATIVE (NEGATIVE) Urine Blood SMALL (0-5) Bogdan/ul Urine Nitrite NEGATIVE (NEGATIVE) Urine Bilirubin NEGATIVE (NEGATIVE) Urine Urobilinogen NEGATIVE (0-1) mg/dL Ur Leukocyte Esterase NEGATIVE (NEGATIVE) Urine WBC (Auto) NONE (0-5) /HPF Urine RBC (Auto) 16-25 (0-2) /HPF U Epithel Cells (Auto) NONE (FEW) /HPF Urine Bacteria (Auto) NONE (NEGATIVE) /HPF Urine Mucus (Auto) SLIGHT (NEGATIVE) /HPF Urine Culture Reflexed YES (NO) Urine Glucose NEGATIVE (NEGATIVE) mg/dL Urine Opiates Level NEGATIVE (NEGATIVE) Ur Methadone NEGATIVE (NEGATIVE) Urine Barbiturates NEGATIVE (NEGATIVE) Ur Phencyclidine (PCP) NEGATIVE (NEGATIVE) Urine Amphetamine NEGATIVE (NEGATIVE) U Benzodiazepine Level NEGATIVE (NEGATIVE) Urine Cocaine NEGATIVE (NEGATIVE) Urine Marijuana (THC) NEGATIVE (NEGATIVE) Ethyl Alcohol (0-10) mg/dL Influenza Type A Ag (NEGATIVE) Influenza Type B Ag (NEGATIVE) RSV (PCR) (Negative) SARS-CoV-2 (PCR) (NEGATIVE) 09/02/21 Range/Units 19:40 WBC (4.0-10.5) K/mm3 RBC (4.1-5.4) M/mm3 Hgb (12.0-16.0) gm/dl Hct (35-47) % MCV (78-100) fl MCH (26-32) pg MCHC (32-36) g/dl RDW (11.5-14.0) % Plt Count (150-450) K/mm3 MPV (7.5-11.0) fl Gran % (36.0-66.0) % Eos # (Auto) (0-0.5) Absolute Lymphs (auto) (1.0-4.6) Absolute Monos (auto) (0.0-1.3) Lymphocytes % (24.0-44.0) % Monocytes % (0.0-12.0) % Eosinophils % (0.00-5.0) % Basophils % (0.0-0.4) % Absolute Granulocytes (1.4-6.9) Basophils # (0-0.4) PT (9.4-12.5) SECONDS INR (0.8-3.0) APTT (25.1-36.5) SECONDS Puncture Site LEFT BRACHIAL pCO2 43 (35-45) mmHg pO2 133 H* (75-100) mmHg Base Excess 2.9 H (-2.0-2.0) O2 Saturation 96.7 (94-100) g/dF ABG pH 7.42 (7.35-7.45) ABG HCO3 27.9 (22-28) ABG O2 Sat (Measured) 98.8 (95-100) % Josh Test NOT APPLICABLE A-a Gradient 127 a/A Ratio 0.51 Hemoglobin 12.4 Carboxyhemoglobin 0.9 (0.0-6.9) % THgb Methemoglobin 1.2 L (1.4-1.5) % Potassium 4.1 (3.5-5.1) Temperature 37.0 C POC O2 Flow Rate 44 % Sodium (137-145) mmol/L Chloride (98-107) mmol/L Carbon Dioxide (22-30) mmol/L Anion Gap (5-15) MEQ/L BUN (7-17) mg/dL Creatinine (0.52-1.04) mg/dL Estimated GFR ML/MIN Glucose (74-106) mg/dL POC Glucometer (74 to 106) mg/dL Lactic Acid (0.4-2.0) Calcium (8.4-10.2) mg/dL Magnesium (1.6-2.3) mg/dL Total Bilirubin (0.2-1.3) mg/dL AST (14-36) U/L ALT (0-35) U/L Alkaline Phosphatase (38-126) U/L Creatine Kinase (30-135) U/L Troponin I (0.000-0.034) ng/mL NT-Pro-B Natriuret Pep (0-900) pg/mL Serum Total Protein (6.3-8.2) g/dL Albumin (3.5-5.0) g/dL Urine Color (YELLOW) Urine Appearance (CLEAR) Urine pH (5-6) Ur Specific Lily (1.005-1.025) Urine Protein (Negative) Urine Ketones (NEGATIVE) Urine Blood (0-5) Bogdan/ul Urine Nitrite (NEGATIVE) Urine Bilirubin (NEGATIVE) Urine Urobilinogen (0-1) mg/dL Ur Leukocyte Esterase (NEGATIVE) Urine WBC (Auto) (0-5) /HPF Urine RBC (Auto) (0-2) /HPF U Epithel Cells (Auto) (FEW) /HPF Urine Bacteria (Auto) (NEGATIVE) /HPF Urine Mucus (Auto) (NEGATIVE) /HPF Urine Culture Reflexed (NO) Urine Glucose (NEGATIVE) mg/dL Urine Opiates Level (NEGATIVE) Ur Methadone (NEGATIVE) Urine Barbiturates (NEGATIVE) Ur Phencyclidine (PCP) (NEGATIVE) Urine Amphetamine (NEGATIVE) U Benzodiazepine Level (NEGATIVE) Urine Cocaine (NEGATIVE) Urine Marijuana (THC) (NEGATIVE) Ethyl Alcohol (0-10) mg/dL Influenza Type A Ag (NEGATIVE) Influenza Type B Ag (NEGATIVE) RSV (PCR) (Negative) SARS-CoV-2 (PCR) (NEGATIVE) - Progress Progress: improved Progress Note: Case discussed with Dr. Parish case of [facility] who accepts transfer. We will load patient with 1-1/2 g of Keppra. Patient is febrile with a leukocytosis of 26,000. It is unclear the source. Cultures obtained. Patient received meropenem and vancomycin for broad coverage. After long discussion with family/son-in-law and daughter they agreed to intubation. Respiratory therapist requested that Dr. Vilchis allow her to intubate. Intubation was performed using glideoscope with hyper angulated blade and stylette. Intubation successful at first attempt. Patient received etomidate. Patient did not receive the rocuronium. Propofol and fentanyl drip ordered. Post intubation chest x-ray revealed a tube near the al. Tube was pulled back 2 cm by respiratory therapy. We did not have a clear source of patient's leukocytosis. CT abdomen pelvis ordered. Results pending. CT scan reveals bilateral hydronephrosis ureterolithiasis and new presacral rectal mass. Meropenem administered. We recheck patient's glucose and it was 188. Daughter agrees to transfer to [facility] for further evaluation and treatment. Portions of this note were created with voice recognition technology. There may be grammatical, spelling, punctuation or sound alike errors 09/02/21 23:46 09/03/21 00:06 Counseled pt/family regarding: lab results, diagnosis, rad results - Departure Departure Disposition: Transfer Clinical Impression: CVA (cerebral vascular accident), Seizure, Tongue laceration, Fever, Ulcer of sacral region, stage 2, Leukocytosis, Urine incontinence, Stool incontinence, Elevated brain natriuretic peptide (BNP) level, Elevated troponin, CHF (congestive heart failure), Hematuria, Elevated CK, Hiatal hernia, Atrophic pancreas, Hydronephrosis, right, Hydronephrosis, left, Ureterolithiasis, C onstipation, Inguinal hernia, left, Rectal tumor Condition: Stable Critical Care Time: No Critical Care Time(excluding separately billable procedures): Critical 105-134 mins Referrals: SHAYE FRANCISCO MD [Primary Care Provider] - Follow up/PCP as directed Instructions: Heart Failure
[2021-09-02 20:24] LABS: INR 1.05 (0.8-3.0); PROTIME 12.4 SECONDS (9.4-12.5)
[2021-09-02 20:26] LABS: PTT 23.5 SECONDS (25.1-36.5)
[2021-09-02 20:28] LABS: Appearance CLEAR (CLEAR); Bilirubin NEGATIVE (NEGATIVE); Blood SMALL Ery/ul (0-5); Glucose NEGATIVE (NEGATIVE); Ketones NEGATIVE (NEGATIVE); Leukocyte Esterase NEGATIVE (NEGATIVE); Mucus SLIGHT /HPF (NEGATIVE); Nitrite NEGATIVE (NEGATIVE); Protein,Urine Dip NEGATIVE (Negative); Specific Gravity 1.011 (1.005-1.025); Urobilinogen NEGATIVE mg/dL (0-1)
[2021-09-02 20:30] LABS: ALBUMIN 3.6 g/dL (3.5-5.0); ALKALINE PHOSPHATASE 100 U/L (38-126); ANION GAP 11.6 MEQ/L (5-15); BLOOD UREA NITROGEN 20 mg/dL (7-17); CHLORIDE 101 mmol/L (98-107); CK-Creatinine Phosphokinase 600 U/L (30-135); Calcium 8.3 mg/dL (8.4-10.2); Carbon Dioxide 28 mmol/L (22-30); Creatinine 1 0.84 mg/dL (0.52-1.04); EST GLOMERULAR FILTRATION RATE > 60.0 ML/MIN; ETHYL ALCOHOL < 10 mg/dL (0-10); Glucose 200 mg/dL (74-106); MAGNESIUM 1.8 mg/dL (1.6-2.3); Potassium 4.2 mmol/L (3.5-5.1); SGOT/AST 33 U/L (14-36); SGPT/ALT 11 U/L (0-35); SODIUM 136 mmol/L (137-145); Total Protein 6.8 g/dL (6.3-8.2)
[2021-09-02 20:46] LABS: Amphetamine,Urine NEGATIVE (NEGATIVE); Barbiturate,Urine NEGATIVE (NEGATIVE); Benzodiazepine,Urine NEGATIVE (NEGATIVE); Cocaine,Urine NEGATIVE (NEGATIVE); Methadone,Urine NEGATIVE (NEGATIVE); Opiate,Urine NEGATIVE (NEGATIVE); PCP,Urine NEGATIVE (NEGATIVE); THC,Urine NEGATIVE (NEGATIVE)
[2021-09-02 20:51] LABS: INFLUENZA A NEGATIVE (NEGATIVE); INFLUENZA B NEGATIVE (NEGATIVE); RESPIRATORY SYNCTIAL VIRUS NEGATIVE (Negative); SARS-CoV-2 Xpert Express NEGATIVE (NEGATIVE)
[2021-09-02] MEDS ORDERED: Lasix 40 MG/4 ML IV ONE (21:20)
[2021-09-02] MEDS ORDERED: Lasix 40 MG/4 ML ONE (21:23)
[2021-09-02] MEDS ORDERED: SUBLIMAZE 100 MCG/2 ML IV ONE (22:10)
[2021-09-02] MEDS ORDERED: SUBLIMAZE 100 MCG/2 ML ONE (22:11)
[2021-09-02] MEDS ORDERED: Propofol 1000 mg/100 ml Bottle 100 ML IV ONE (22:49)
[2021-09-02] MEDS ORDERED: Amidate 20 MG/10 ML IV ONE (22:54)
[2021-09-02] MEDS ORDERED: Keppra 500 MG/5 ML*** 1,500 MG in D5w 100ML Mini Bag 100 ML 100 ML IV ONE (23:33)
[2021-09-02] MEDS ORDERED: Keppra 500 MG/5 ML ONE (23:35)
[2021-09-02] MEDS ORDERED: D5w 100ML Mini Bag 100 ML 100 ML IV ONE (23:35)
[2021-09-02] MEDS ORDERED: VANCOMYCIN 1 GRAM/200 ML BAG 1 GM/200 ML PIGGYBACK IV ONE ×2 (23:42→23:50)
[2021-09-02] MEDS ORDERED: Sodium Chloride 100ML MINI-BAG PLUS 100 ML IV ONE (23:48)
[2021-09-02] MEDS ORDERED: Merrem 1 GM IV ONE (23:48)
[2021-09-02 23:51] VITALS: O2SAT 97
[2021-09-02 23:53] LABS: A-aADO2 161; ABG HEMOGLOBIN 13.2; ABG POTASSIUM 4.7 (3.5-5.1); ARTERIAL BLD GAS O2 SATURATION 99.3 % (95-100); ARTERIAL BLOOD GAS BASE EXCESS 2.2 (-2.0-2.0); ARTERIAL BLOOD GAS FIO2 60 %; ARTERIAL BLOOD GAS PCO2 49 mmHg (35-45); ARTERIAL BLOOD GAS PO2 206 mmHg (75-100); ARTERIAL BLOOD GAS pH 7.37 (7.35-7.45); CARBOXYHEMOGLOBIN 0.8 % THgb (0.0-6.9); HCO3- 28.3 (22-28); HGB O2 SAT 97.6 g/dF (94-100); Methhemoglobin 0.9 % (1.4-1.5)
[2021-09-02] MEDS ORDERED: Merrem 1 GM 1 G in Sodium Chloride 100ML MINI-BAG PLUS 100 ML IV ONE (23:53)
[2021-09-02 23:54] LABS: ABG SITE RIGHT BRACHIAL; ARTERIAL BLD GAS TIDAL VOLUME 450 cc; ARTERIAL BLOOD GAS PEEP 5 cmH2O; ARTERIAL BLOOD GAS VENT MODE AC; ARTERIAL BLOOD GAS VENT RATE 16 /MIN
[2021-09-03 00:25] VITALS: BP 155/86; PULSE 90
--- NOTE | 2021-09-03 08:30 | XRAY ---
Indication: Unresponsive. Aspiration. Comparison: None Portable chest demonstrates chronic lung markings with minimal bibasilar infiltrates/atelectasis. No consolidation/large effusion. Heart not enlarged with CABG. Bony thorax intact with osteopenia and degenerative changes.
--- NOTE | 2021-09-03 08:32 | XRAY ---
Indication: Intubation and NG tube placement. Comparison: Taken earlier today. Portable chest demonstrates new endotracheal tube tip at al and new NG tube tip just superior to GE junction. ER clinician is aware and will adjust appropriately, as noted in electronic notes. Remaining heart and lungs unchanged.
--- NOTE | 2021-09-03 08:38 | XRAY ---
Indication: Unresponsive. Stroke. Multiple contiguous axial images obtained through the head without contrast. Comparison: None Patient's head was fixated manually with minimal beam artifact from technicians hands. Also minimal motion artifact. Age-appropriate global atrophy and mild periventricular degenerative micro-ischemia bilaterally. No acute intracranial hemorrhage, abnormal extra-axial fluid collection, or mass effect. Fourth ventricle is midline without hydrocephalus. Bony calvarium intact with incidental mild osteopenia and mild hyperostosis frontalis interna. Visualized paranasal sinuses and mastoid air cells are clear. Impression: Limited exam due to artifact as detailed. Grossly nonacute senile brain.
--- NOTE | 2021-09-03 10:50 | XRAY ---
Indication: Unresponsive. Intra-abdominal infection. Bowel perforation. Multiple contiguous axial images obtained through the abdomen and pelvis without contrast. Comparison: February 18, 2018. There is now beam artifact from patient's arms and mild aspiration throughout exam. Lung bases now demonstrates mild bibasilar dependent atelectasis with tiny effusions. Heart not enlarged. Again moderate size hiatal hernia with partial intrathoracic stomach. Noncontrasted stomach and bowel loops are nonobstructed. There is now mild diffuse scattered colonic fecal debris throughout. Again cholecystectomy, appendectomy, and hysterectomy. Stable benign-appearing presacral calcifications. Urinary bladder is empty with new Zamora balloon catheter in situ. Right kidney again demonstrates nonobstructing calculi with new mild hydronephrosis. Left kidney remains markedly atrophic with hydronephrosis and mild hydroureter. Remaining liver, pancreas, spleen, and adrenal glands are unremarkable for noncontrast exam. There remains extensive scattered vascular calcifications. Stable aorto bifemoral and femoral-femoral bypass grafts. Again lack of IV contrast precludes further characterization. Osseous structures again demonstrates osteopenia, mild/moderate degenerative changes throughout the thoracolumbar spine, and L1-L5 kyphoplasty. Stable small fatty midline epigastric ventral hernia. New small left inguinal hernia with knuckle of colon herniating without couple complications. Impression: 1. Beam and respiration artifact. 2. New left inguinal hernia with herniated colon. No complications. 3. New diffuse fecal stasis. 4. Again hiatal hernia with partial intrathoracic stomach, nonobstructing right renal calculi, left renal atrophy with hydronephrosis/hydroureter, benign presacral calcifications, significant arteriosclerotic disease with bypass grafts, and chronic bony findings. Comment: Preliminary interpretation made by [facility]. No critical discrepancy.
== END 2021-09-03 | disposition short-term general hospital (02) ==
LOC: MERGE 19:26 → ED 19:26
DX: I63.9 Cerebral infarction, unspecified (principal); N13.30 Unspecified hydronephrosis; N13.2 Hydronephrosis with renal and ureteral calculous obstruction; R56.9 Unspecified convulsions; S01.512A Laceration without foreign body of oral cavity, initial encounter; R50.9 Fever, unspecified; L89.152 Pressure ulcer of sacral region, stage 2; D72.829 Elevated white blood cell count, unspecified; R32 Unspecified urinary incontinence; R15.9 Full incontinence of feces; R79.89 Other specified abnormal findings of blood chemistry; R74.8 Abnormal levels of other serum enzymes; I50.9 Heart failure, unspecified; K59.00 Constipation, unspecified; K40.90 Unilateral inguinal hernia, without obstruction or gangrene, not specified as recurrent; D37.5 Neoplasm of uncertain behavior of rectum
CPT/HCPCS: 0241U; 31500; 36000; 36415; 36600; 51702; 70450; 71045; 74176; 80053; 80307; 81001; 82375; 82550; 82803; 82947; 83605; 83735; 83880; 84484; 85025; 85610; 85730; 87040; 87077; 87086; 93005; 93041; 94002; 94760; 94770; 96374; 96375; 96376; 99285; 99291; 99292; J1940; J1953; J2060; J2704; J3010; A9270-GY; G0480; J3370